=== PATIENT | female | born 1960 | race Hispanic/Latino ===

== ENCOUNTER 2017-01-13 21:21 | Inpatient (IN) | payer MEDICARE, OTHER ==
[2017-01-13] MEDS ORDERED: Morphine 4 mg/ml ISec IVP STA (21:54)
[2017-01-13] MEDS ORDERED: DiphenhydrAMINE 50 mg/ml Inj IVP STA (21:55)
[2017-01-13] MEDS ORDERED: Famotidine 20mg/50ml 20 MG/50 ML BAG IV STA (21:59)
--- NOTE | 2017-01-13 22:25 | ED PDOC ---
Arrival/HPI - General Chief Complaint: ENT Problem Time Seen by Provider: 01/13/17 21:37 Historian: Patient - History of Present Illness Narrative History of Present Illness (Text): 01/13/17 22:10 56-year-old female presents emergency Department with sudden onset of hoarseness of her voice. Turned her head, and felt sudden onset of pain in her neck followed by hoarseness of her voice. Patient states that she has no difficulty swallowing but has some pain in the right side when she swallows. Patient states that she has not had sore throat until the incident, denies any arthralgias or myalgias, denies fevers or chills, denies feeling weak or sick for the incident. Symptom Onset: Sudden Symptom Course: Unchanged Activities at Onset: Rest Context: Home Past Medical History - Provider Review Nursing Documentation Reviewed: Yes - Infectious Disease Hx of Infectious Diseases: None - Tetanus Immunization Tetanus Immunization: Up to Date, Unknown - Cardiac Hx Cardiac Disorders: Yes Hx Hypertension: Yes - Pulmonary Hx Respiratory Disorders: Yes Hx Chronic Obstructive Pulmonary Disease (COPD): Yes Hx Emphysema: Yes - Neurological Hx Neurological Disorder: Yes Hx Migraine: Yes - HEENT Hx HEENT Disorder: No - Renal Hx Renal Disorder: No - Endocrine/Metabolic Hx Endocrine Disorders: No - Hematological/Oncological Hx Blood Disorders: No - Integumentary Hx Dermatological Disorder: No - Musculoskeletal/Rheumatological Hx Arthritis: Yes Hx Rheumatoid Arthritis: Yes Other/Comment: spinedlyosis - Gastrointestinal Hx Gastrointestinal Disorders: No - Genitourinary/Gynecological Hx Genitourinary Disorders: No - Psychiatric Hx Depression: No Hx Emotional Abuse: No Hx Physical Abuse: No Hx Substance Use: No - Surgical History Hx Appendectomy: Yes Hx Cholecystectomy: Yes Hx Tubal Ligation: Yes Other/Comment: Triple fusion on the neck. Jean Carlos elbow surgery. Jean Carlos foot surgery. L shoulder surgery. Hand surgery - Anesthesia Hx Anesthesia: Yes Hx Anesthesia Reactions: No Hx Malignant Hyperthermia: No - Suicidal Assessment Feels Threatened In Home Enviroment: No Family/Social History - Physician Review Nursing Documentation Reviewed: Yes Family/Social History: Unknown Family HX Smoking Status: Current Some Days Smoker Hx Alcohol Use: No Hx Substance Use: No Hx Substance Use Treatment: No Allergies/Home Meds Allergies/Adverse Reactions: Allergies Iodinated Contrast Media - Oral and [Iodinated Contrast Media - IV Dye] Allergy (Verified 06/02/16 09:02) ITCHING CIMZIA Allergy (Intermediate, Uncoded 01/03/15 20:12) SHORTNESS OF BREATH LATEX Allergy (Mild, Uncoded 01/03/15 20:12) RASH cemzia Allergy (Uncoded 01/03/15 20:12) ANGIOEDEMA Home Medications: Home Meds Medication Instructions Recorded Confirmed Acetaminophen/Oxycodone Hydr 1 tab PO Q8H 01/03/15 01/14/17 [Percocet 10/325 mg Tab] Hydrochlorothiazide [Microzide] 12.5 mg PO DAILY 06/02/16 01/14/17 Pantoprazole Sodium [Protonix] 40 mg PO DAILY 06/02/16 01/14/17 Tofacitinib Citrate [Xeljanz] 1 tab PO QOTHERDAY 06/02/16 01/14/17 Oxycodone HCl/Acetaminophen 1 tab PO DAILY 01/14/17 01/14/17 [Percocet 10-325 mg Tablet] Prednisone [Teodora] 1 tab PO PRN PRN 01/14/17 01/14/17 Review of Systems - Physician Review All systems were reviewed & negative as marked: Yes Physical Exam - Physical Exam Narrative Physical Exam (Text): - Review of Systems Constitutional: Normal. absent: Fatigue, Weight Change, Fevers Eyes: Normal ENT: Neck Pain, voice hoarseness, denies tristhmus Respiratory: Normal. absent: SOB, Cough, Sputum Cardiovascular: absent: Chest Pain, Palpitations, Syncope Gastrointestinal: Normal. absent: Abdominal Pain, Diarrhea, Nausea, Vomiting Genitourinary: Normal. absent: Dysuria, Frequency, Hematuria, vaginal bleeding Musculoskeletal: Neck Pain absent: Arthralgias, Back Pain Skin: no rashes, no erythema Neurological: absent: Focal Weakness Endocrine: Normal Hemo/Lymphatic: Normal Psychiatric: No suicidal or homicidal ideations Physical exam Patient appears age appropriate in no distress, speaking full sentences without difficulty, hoarse voice - Systems Exam Head: Present: Atraumatic, Normocephalic Pupils: Present: PERRL Extroacular Muscles: Present: EOMI Conjunctiva: Present: Normal Mouth: Present: Moist Mucous Membranes Neck: Present: Normal Range of Motion. Palpable thyroid. Patient states that she has a history of thyroid nodules. No: MIDLINE TENDERNESS, Paraspinal Tenderness Respiratory/Chest: Present: Clear to Auscultation, Good Air Exchange. No: Respiratory Distress, Accessory Muscle Use, Tachypneic Cardiovascular: Present: Regular Rate and Rhythm, Normal S1, S2, Peripheal Pulses Present. No: Murmurs Abdomen: Present: Normal Bowel Sounds. No: Tenderness, Distention, Peritoneal Signs, Rebound, Guarding Back: Present: Normal Inspection. No: Midline Tenderness, Paraspinal Tenderness Upper Extremity: Present: Normal Inspection. No: Cyanosis, Edema Lower Extremity: Present: Normal Inspection. No: Edema Neurological: Present: GCS=15, Speech Normal but hoarse, cranial nerves II through XII intact with no cerebellar abnormality. No focal neurological deficits except for hoarse voice. Skin: Present: Warm, Dry, Normal Color. No: Rashes Lymphatic: Present: OX3, NI, NC Psychiatric: Present: Alert, Oriented x 3, Normal Insight, Normal Concentration Vital Signs Reviewed: Yes Vital Signs Temp Pulse Resp BP Pulse Ox 01/14/17 03:00 78 13 152/77 H 95 01/14/17 02:58 98.1 F 73 22 152/77 H 01/14/17 02:53 78 16 96 01/14/17 02:22 85 18 192/93 H 96 01/13/17 23:54 94 H 18 181/92 H 96 01/13/17 21:31 98.1 F 95 H 18 178/102 H 96 Temperature: Afebrile Blood Pressure: Normal Pulse: Tachycardic Respiratory Rate: Normal Appearance: Positive for: Well-Appearing Pain Distress: None Mental Status: Positive for: Alert and Oriented X 3 Medical Decision Making ED Course and Treatment: 01/13/17 22:35 56-year-old female with sudden onset of hoarseness of voice after she turned her head and felt pop. Also was complaining of right neck discomfort and pain with swallowing, but without difficulty swallowing. Differential diagnosis includes but not limited to: Vertebral artery dissection versus laryngeal nerve palsy. Patient has no asymmetry or masses in her posterior pharynx, no trismus, no tenderness to palpation of her throat, which makes peritonsillar or retropharyngeal abscess much less likely. Notes and results from previous visits were reviewed. Patient last reported to the emergency department on 06/28/15 for evaluation of headache. Patient reported had "ocular auras" for the past few months, but worsening. Patient was discharged and advised to follow up with PMD. Plan: -- US carotid and vertebral duplex -- labs -- Benadryl, Morphine, Pepcid, Solumedrol, IV fluids patient states she has an allergy to IV contrast and she has itching and difficulty breathing with it solumedrol, benadryl, pepsid ordered as premedication glen Bergman. recommends to order carotid and vertebral dopplers, to admin heparin bolus and drip, and to obtain CTA of arch, cervical vessels and chest tomorrow glen Stiles (pt's ENT physician) states he will send a resident to examine pt tonight if available, or tmr morning pt aware of and agrees with plan US tech called to come in emergently. 01/14/17 00:[address] Meyer. 01/14/17 00:09 glen Bergman, states pt has no evidence of dissection on US, and to cnt with treatment plan pt aware of and agrees with plan 01/14/17 00:13 glen Meyer, asked to admit to the MICU traveling accountant paged 01/14/17 00:20 glne Zelaya in detail, aware of admission to the MICU. asked for dry CT of neck I have discussed the results and plan with the patient, who expresses understanding. Patient given the opportunity to ask question, all questions were answered and there is agreement with the plan to be admitted to the hospital. 01/14/17 00:54 glen Morales from neurosurgery, aware of and agrees with plan CT Head Without Intravenous Contrast FINDINGS: No intracranial hemorrhage. No intracranial edema. No evidence of infarct. There is partial opacification of the ethmoid sinuses, much greater on the left. There is partial opacification of the right maxillary sinus. It could be chronic or alternatively represent acute sinusitis. Clinical correlation is recommended. IMPRESSION: Sinus disease as above. Dictated and Authenticated by: Addie Mcguire MD 01/14/2017 3:45 AM Eastern Time ([place] & [place]) CT Neck Without Intravenous Contrast FINDINGS: Anterior plate and screws C4-C7. There are degenerative changes in the osseous structures with articular facet joint hypertrophy. There is partial opacification of the ethmoid sinuses, much greater on the left. There is partial opacification of the right maxillary sinus. It could be chronic or alternatively represent acute sinusitis. Clinical correlation is recommended. No mass or abscess identified however evaluation is limited without intravenous contrast. Numerous small lymph nodes are present scattered throughout the neck. The airway is patent. A normal epiglottis is identified. IMPRESSION: No acute findings in the neck on noncontrast study. Sinus disease. Dictated and Authenticated by: Addie Mcguire MD 01/14/2017 3:53 AM Eastern Time ([place] & [place]) - Critical Care Critical Care Minutes: 30 minutes - Lab Interpretations Lab Results: 01/13/17 22:34 01/13/17 22:34 Lab Results 01/13/17 23:10: Blood Type Confirm B POSITIVE 01/13/17 22:35: Blood Type B POSITIVE, Antibody Screen Negative, BBK History Checked No verified bt 01/13/17 22:34: Sodium 140, Potassium 4.2, Chloride 105, Carbon Dioxide 26, Anion Gap 13, BUN 15, Creatinine 0.7, Est GFR ( Amer) > 60, Est GFR (Non- Af Amer) > 60, Random Glucose 102, Calcium 9.8, Total Bilirubin 0.7, AST 31, ALT 39, Alkaline Phosphatase 64, Total Protein 7.5, Albumin 4.7, Globulin 2.7, Albumin/Globulin Ratio 1.7 01/13/17 22:34: PT 11.1, INR 1.03, APTT 27.1 01/13/17 22:34: WBC 5.9, RBC 5.04, Hgb 15.5, Hct 44.2, MCV 87.7, MCH 30.8, MCHC 35.1, RDW 13.1, Plt Count 199, MPV 10.6, Gran % 40.3 L, Lymph % (Auto) 46.0 H, [place] % (Auto) 10.5 H, Eos % (Auto) 2.4, Baso % (Auto) 0.8, Gran # 2.39, Lymph # 2.7, [place] # 0.6, Eos # 0.1, Baso # 0.05 I have reviewed the lab results: Yes - RAD Interpretation Radiology Orders: 01/13/17 22:08 CAROTID & VERTEBRAL DUPLEX [US] Stat 01/14/17 00:18 NECK SOFT TISSUE W/O CONTRAST [CT] Stat - Medication Orders Current Medication Orders: Aspirin (Ecotrin) 81 mg PO DAILY ROM Hydrochlorothiazide (Microzide) 12.5 mg PO DAILY [facility] Sodium Chloride (Sodium Chloride 0.9%) 1,000 mls @ 100 mls/hr IV .Q10H ROM Last Admin: 01/13/17 22:49 Dose: 100 mls/hr Heparin Sodium/Sodium Chloride (Heparin 56458 Units/250ml 1/2 Normal Saline) 25 ,000 units in 250 mls @ 11.969 mls/hr IV .[id number] PRN; Protocol; 18 UNITS/KG/HR PRN Reason: ADJUST RATE PER PROTOCOL Last Admin: 01/14/17 00:44 Dose: 18 units/kg/hr, 11.969 mls/hr Oxycodone/Acetaminophen (Percocet 10/325 Mg Tab) 1 tab PO Q8H ROM Pantoprazole Sodium (Protonix Ec Tab) 40 mg PO DAILY ROM Discontinued Medications Diphenhydramine HCl (Benadryl) 50 mg IVP STAT STA Stop: 01/13/17 21:56 Last Admin: 01/13/17 22:49 Dose: 50 mg Heparin Sodium (Porcine) (Heparin) 5,300 units 80 units/kg (5300 units) IV ONCE ONE PRN Reason: Protocol Stop: 01/13/17 23:37 Last Admin: 01/14/17 00:38 Dose: 5,300 units Hydrochlorothiazide (Hydrodiuril) 25 mg PO STAT STA Stop: 01/14/17 00:10 Last Admin: 01/14/17 00:20 Dose: Not Given Non-Admin Reason: Patient Refused Famotidine (Pepcid 20mg/50ml Premix) 20 mg in 50 mls @ 100 mls/hr IV STAT STA Stop: 01/13/17 22:28 Last Admin: 01/13/17 22:49 Dose: 100 mls/hr Heparin Sodium/Sodium Chloride (Heparin 39819 Units/250ml 1/2 Normal Saline) 25 ,000 units in 250 mls @ 11.92 mls/hr IV .[id number] PRN; Protocol; 18 UNITS/KG/HR PRN Reason: ADJUST RATE PER PROTOCOL Methylprednisolone (Solu-Medrol) 125 mg IVP STAT STA Stop: 01/13/17 21:56 Last Admin: 01/13/17 22:49 Dose: 125 mg Morphine Sulfate (Morphine) 4 mg IVP STAT STA Stop: 01/13/17 21:55 Last Admin: 01/13/17 22:48 Dose: 4 mg Morphine Sulfate (Morphine) 6 mg IVP STAT STA Stop: 01/14/17 00:45 Last Admin: 01/14/17 01:26 Dose: 6 mg - [facility] Statement The provider has reviewed the documentation as recorded by the Yanetibsinai Gramajo All medical record entries made by the Yanetibsinai were at my direction and personally dictated by me. I have reviewed the chart and agree that the record accurately reflects my personal performance of the history, physical exam, medical decision making, and the department course for this patient. I have also personally directed, reviewed, and agree with the discharge instructions and disposition. Disposition/Present on Arrival - Present on Arrival Any Indicators Present on Arrival: No History of DVT/PE: No History of Uncontrolled Diabetes: No Urinary Catheter: No History of Decub. Ulcer: No History Surgical Site Infection Following: None - Disposition Have Diagnosis and Disposition been Completed?: Yes Diagnosis: Hoarseness of voice Disposition: HOSPITALIZED Disposition Time: 00:21 Patient Plan: Admission Patient Problems: Current Active Problems Problem Status Onset Hoarseness of voice Acute Condition: FAIR
[2017-01-13 22:45] LABS: ADD MANUAL DIFF? NO
[2017-01-13] MEDS: Sodium Chloride 0.9% 1,000 ML IV SCH (22:49)
[2017-01-13 22:58] LABS: ALB/GLOB RATIO 1.7 (1.1-1.8); ALKALINE PHOSPHATASE 64 U/L (38-133); ALT/SGPT 39 U/L (7-56); AST/SGOT 31 U/L (15-39); BILIRUBIN,TOTAL 0.7 mg/dL (0.2-1.3); BLOOD UREA NITROGEN 15 mg/dL (7-21); CALCIUM 9.8 mg/dL (8.4-10.5); CARBON DIOXIDE 26 mmol/L (21-33); CHLORIDE 105 mmol/L (98-107); GFR AFRICAN-AMERICAN > 60; GLUCOSE,RANDOM 102 mg/dL (70-110); POTASSIUM 4.2 mmol/L (3.6-5.0); SODIUM 140 mmol/L (132-148); TOTAL PROTEIN 7.5 g/dL (5.8-8.3)
[2017-01-13 23:02] LABS: BASO # 0.05 K/mm3 (0.0-2.0); BASO % 0.8 % (0.0-3.0); EOS # 0.1 (0.0-0.7); EOS % 2.4 % (1.5-5.0); GRAN # 2.39 (1.4-6.5); GRAN % 40.3 % (50.0-68.0); HEMATOCRIT 44.2 % (36.0-48.0); LYMPH # 2.7 (1.2-3.4); MEAN CELL VOLUME 87.7 fL (80.0-105.0); MEAN CORPUSCULAR HEMOGLOBIN 30.8 pg (25.0-35.0); MEAN CORPUSCULAR HGB CONC 35.1 g/dl (31.0-37.0); MEAN PLATELET VOLUME 10.6 fl (7.0-11.0); MONO # 0.6 (0.1-0.6); MONO % 10.5 % (1.0-6.0); PLATELET COUNT 199 10^3/uL (120.0-450.0); RED CELL DISTRIBUTION WIDTH 13.1 % (11.5-14.5); WHITE BLOOD COUNT 5.9 10^3/ul (4.5-11.0)
[2017-01-13 23:08] LABS: INR 1.03 (0.93-1.08); PARTIAL THROMBOPLASTIN TIME 27.1 Seconds (23.7-30.8)
[2017-01-13] MEDS ORDERED: Heparin25000 units/250ml 1/2NS 25,000 UNITS/250 ML BAG IV PRN (23:36)
[2017-01-14] MEDS ORDERED: Heparin25000 units/250ml 1/2NS 25,000 UNITS/250 ML BAG IV PRN (00:33)
[2017-01-14] MEDS ORDERED: Oxycodone/Acetaminophen 10/325 mg Tab PO SCH ×2 (01:30→10:00)
--- NOTE | 2017-01-14 01:57 | CP.PCM.CON ---
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 This resulted in pain in the right side of the neck radiating to the base of the skull, occiput, she also started to have hoarseness of the voice, and pain on swallowing, felt light headed also. Came to the hospital wth above symptoms. She denied any loss of sensation, weakness in arms or legs, dysarthria, breathing difficulty, diplopia. In ER patient had doppler of the carotid done with was unremarkable. DD of vertebrobasillar dissection, recurrent laryngeal nerve was thought. PMH as above, prior h/o hoarseness with laryngeal polyps, appencectomy, cholecystecomy, tl and spine surgeries Allergies Iodine contrast getts itchy and breathing difficulties, codine causing rash, itching, latex Family history not contributory Social lives with family, disability form RA, smokes 1PPD, denies alcohol, illicit durgs, patient is retiered ER physician. Meds reviewed In ER patient was started on heparin drip, case was d/w Dr Héctor Bergman who recommended CTA for head and neck, aslo discussed with ENT. Review of Systems - Review of Systems All systems: reviewed and no additional remarkable complaints except (hpi) Past Patient History - Infectious Disease Hx of Infectious Diseases: None - Tetanus Immunizations Tetanus Immunization: Up to Date, Unknown - Past Social History Smoking Status: Heavy Smoker > 10 Cigarettes Daily Alcohol: None Drugs: Denies Home Situation {Lives}: With Family - CARDIAC Hx Cardiac Disorders: Yes Hx Hypertension: Yes - PULMONARY Hx Respiratory Disorders: Yes Hx Chronic Obstructive Pulmonary Disease (COPD): Yes Hx Emphysema: Yes - NEUROLOGICAL Hx Neurological Disorder: Yes Hx Migraine: Yes - HEENT Hx HEENT Problems: No - RENAL Hx Chronic Kidney Disease: No - ENDOCRINE/METABOLIC Hx Endocrine Disorders: No - HEMATOLOGICAL/ONCOLOGICAL Hx Blood Disorders: No - INTEGUMENTARY Hx Dermatological Problems: No - MUSCULOSKELETAL/RHEUMATOLOGICAL Hx Arthritis: Yes Hx Rheumatoid Arthritis: Yes Other/Comment: spinedlyosis - GASTROINTESTINAL Hx Gastrointestinal Disorders: No - GENITOURINARY/GYNECOLOGICAL Hx Genitourinary Disorders: No - PSYCHIATRIC Hx Depression: No Hx Emotional Abuse: No Hx Physical Abuse: No Hx Substance Use: No - SURGICAL HISTORY Hx Appendectomy: Yes Hx Cholecystectomy: Yes Hx Tubal Ligation: Yes Other/Comment: Triple fusion on the neck. Jean Carlos elbow surgery. Jean Carlos foot surgery. L shoulder surgery. Hand surgery - ANESTHESIA Hx Anesthesia: Yes Hx Anesthesia Reactions: No Hx Malignant Hyperthermia: No Meds Allergies/Adverse Reactions: Allergies Allergy/AdvReac Type Severity Reaction Status Date / Time Iodinated Contrast Media - Allergy ITCHING Verified 06/02/16 09:02 Oral and [Iodinated Contrast Media - IV Dye] CIMZIA Allergy Intermediate SHORTNESS Uncoded 01/03/15 20:12 OF BREATH LATEX Allergy Mild RASH Uncoded 01/03/15 20:12 cemzia Allergy ANGIOEDEMA Uncoded 01/03/15 20:12 - Medications Medications: Current Medications Aspirin (Ecotrin) 81 mg PO DAILY [facility] Hydrochlorothiazide (Microzide) 12.5 mg PO DAILY [facility] Sodium Chloride (Sodium Chloride 0.9%) 1,000 mls @ 100 mls/hr IV .Q10H [facility] Last Admin: 01/13/17 22:49 Dose: 100 mls/hr Heparin Sodium/Sodium Chloride (Heparin 75250 Units/250ml 1/2 Normal Saline) 25 ,000 units in 250 mls @ 11.969 mls/hr IV .[id number] PRN; Protocol; 18 UNITS/KG/HR PRN Reason: ADJUST RATE PER PROTOCOL Last Admin: 01/14/17 00:44 Dose: 18 units/kg/hr, 11.969 mls/hr Oxycodone/Acetaminophen (Percocet 10/325 Mg Tab) 1 tab PO Q8H [facility] Pantoprazole Sodium (Protonix Ec Tab) 40 mg PO DAILY [facility] Physical Exam - Additional Findings Additional findings: * HEENT KASEY, hoarse voice, whispering * Neck no swelling mild tenderness in the occipital area, can not touch chin with chest due to prior spine surg * Chest Clear * CVS Regular, no gallop or rub * PA soft, nt, bs present * Ext no edema * WASTE RECYCLER no cranial nerve deficit, no dysarthria, no sensory, motor deficit, heal toe, no coordination difficulties, plantars down going * Skin normal turgor. Results - Vital Signs Recent Vital Signs: Last Vital Signs Temp 98.1 F 01/13/17 21:31 Pulse 94 H 01/13/17 23:54 Resp 18 01/13/17 23:54 BP 181/92 H 01/13/17 23:54 Pulse Ox 96 01/13/17 23:54 - Labs Result Diagrams: 01/13/17 22:34 01/13/17 22:34 Assessment & Plan - Assessment and Plan (Free Text) Assessment: * Sudden right neck pain with difficulty in swallowing, hoarse voice DD of laryngeal polyps, recurrent laryngeal nerve palsy, swelling around the area, pending CTA, patient being prepared with due to contrast allergies. * H/o RA on treatment, ER physician on disability Plan: * Plain CT of head/neck * CTA * Pain control * ENT consult * Observe in icu.
[2017-01-14 03:30] VITALS: BMI 27.1
--- NOTE | 2017-01-14 03:45 | CT ---
EXAM: CT Head Without Intravenous Contrast CLINICAL HISTORY: 56 years old, female; Pain; Headache; Additional info: Hoarse voice TECHNIQUE: Axial computed tomography images of the head/brain without intravenous contrast. This CT exam was performed using one or more of the following dose reduction techniques: automated exposure control, adjustment of the mA and/or kV according to patient size, and/or use of iterative reconstruction technique. EXAM DATE/TIME: 01/14/2017 1:46 AM COMPARISON: US - CAROTID VERTEBRAL DUPLEX 01/13/2017 11:26:05 PM FINDINGS: No intracranial hemorrhage. No intracranial edema. No evidence of infarct. There is partial opacification of the ethmoid sinuses, much greater on the left. There is partial opacification of the right maxillary sinus. It could be chronic or alternatively represent acute sinusitis. Clinical correlation is recommended. IMPRESSION: Sinus disease as above.
--- NOTE | 2017-01-14 03:53 | CT ---
EXAM: CT Neck Without Intravenous Contrast CLINICAL HISTORY: 56 years old, female; Pain; Other: Headache; Additional info: Hoarse voice TECHNIQUE: Axial computed tomography images of the neck without intravenous contrast. This CT exam was performed using one or more of the following dose reduction techniques: automated exposure control, adjustment of the mA and/or kV according to patient size, and/or use of iterative reconstruction technique. EXAM DATE/TIME: 01/14/2017 12:18 AM COMPARISON: US - CAROTID VERTEBRAL DUPLEX 01/13/2017 11:26:05 PM FINDINGS: Anterior plate and screws C4-C7. There are degenerative changes in the osseous structures with articular facet joint hypertrophy. There is partial opacification of the ethmoid sinuses, much greater on the left. There is partial opacification of the right maxillary sinus. It could be chronic or alternatively represent acute sinusitis. Clinical correlation is recommended. No mass or abscess identified however evaluation is limited without intravenous contrast. Numerous small lymph nodes are present scattered throughout the neck. The airway is patent. A normal epiglottis is identified. IMPRESSION: No acute findings in the neck on noncontrast study. Sinus disease.
[2017-01-14] MEDS: Pantoprazole 40 mg EC Tab PO SCH (09:32)
[2017-01-14] MEDS: Sodium Chloride 0.9% 1,000 ML IV SCH (11:38)
--- NOTE | 2017-01-14 13:20 | US ---
HISTORY: neck pain TECHNIQUE: Sonographic evaluation of the thyroid gland. COMPARISON: FINDINGS: RIGHT LOBE: Measures 2 x 1.2 x 3.7 cm. Heterogenous echotexture, normal vascularity Nodules: 1. Cystic nodule upper pole 3 mm. 2. Complex primarily solid nodule mid pole region 7 x 8 mm. 3. Solid hypoechoic nodule lower pole 1 x 1.4 cm. 4. Cystic nodule lower pole 3 x 2 mm. LEFT LOBE: Measures 1 x 2.5 x 3.6 cm. Heterogenous echotexture, normal vascularity Nodules: 1. Solid nodule lower pole 4 x 5 mm. 2. Solid nodule midpole region 2 x 6 mm. ISTHMUS: Measures 0.21 cm. Nodules: None OTHER FINDINGS: None . IMPRESSION: Multiple bilateral thyroid nodules the largest in the right lobe measures 1 x 1.4 cm. Recommendations for follow-up: 1. Radionuclide Scan to assess Thyroid function and to evaluate the thyroid for the presence of hot or cold nodules. 2. Fine needle aspiration (FNA) should also be considered as an invasive diagnostic tool in the assessment of findings described above.
--- NOTE | 2017-01-14 14:05 | CARD ---
APPROVED REPORT EKG Measurement Heart [id number] <Conclusion> Normal sinus rhythm Nonspecific ST and T wave abnormality Abnormal ECG
[2017-01-14] MEDS: Oxycodone/Acetaminophen 10/325 mg Tab PO PRN (14:21)
--- NOTE | 2017-01-14 14:26 | CON ---
DATE: 01/14/2017 CHIEF COMPLAINT: Neck pain. 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 Apparently she was preparing dinner in the kitchen when she turned her neck and heard a snap around 8 p.m., had right-sided neck pain radiating down the base of the skull and also has had some worsening hoarseness of voice with some lightheadedness. She cam e to the ER to evaluate for vertebrobasilar dissection. CT head showed no acute intracranial abnorma lities as well as CTA neck showed no acute abnormalities either. Currently, she is moving all extrem ities. Her blood pressures are stable, she also has some mild ____ pain, but moving all extremities without any difficulty. She has baseline hoarseness, but no aphasia. 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 No acute events overnight. PAST MEDICAL HISTORY: History of hoarseness from laryngeal polyps, appendectomy, cholecystectomy, hi story of cervical and lumbar spine fusion, history of lumbar vertebral rupture at L1-L2 and history o f rheumatoid arthritis and hypertension. REVIEW OF SYSTEMS: 14 point review of systems as per the HPI. FAMILY HISTORY: Noncontributory. SOCIAL HISTORY: No illicit drug use, smoking or ETOH abuse. Is disabled from rheumatoid arthritis. REVIEW OF SYSTEMS: A 14-point review of systems is negative except for the HPI. ALLERGIES: IODINE, CONTRAST MEDIA. PHYSICAL EXAMINATION: VITAL SIGNS: Temperature 98.1, pulse rate 85, blood pressure 191/94, respiratory rate of 18, oxygen 95% on room air. GENERAL: The patient is sitting up in bed in no acute distress. HEENT: Atraumatic, normocephalic. PERRLA. Extraocular muscles intact. NECK: Supple, no JVD, no adenopathy noted. LUNGS: Clear to auscultation. No adventitious sounds. HEART: S1, S2, normal rate and rhythm. No murmurs, rubs, or gallops. ABDOMEN: Soft, nontender, nondistended. Bowel sounds present. EXTREMITIES: No clubbing, no cyanosis. Peripheral pulses 2+ felt bilaterally. NEUROLOGIC: The patient is alert, oriented to person, place, month and year. Speech is fluent, with out any errors. Cranial nerves II through XII are intact. MOTOR EXAM: Moves all extremities equally. No pronator drift seen. SENSORY: Decreased light touch to pinprick of calves bilaterally, decreased vibration of the toes. DTRs are 2+ throughout and 1 at the ankles and knees. COORDINATION: [id number] intact. GAIT: Deferred for now. MUSCULOSKELETAL: She has upper cervical tightness and a spasm. She has evidence of rheumatological features in her hands and joints. LABORATORIES: Sodium is 140, potassium 4.2, chloride 105, carbon dioxide 26, BUN of 15, creatinine 0 .7. Random glucose 102. ASSESSMENT AND PLAN: This is a 56-year-old woman with history of status post cervical and lumbar spi ne fusion with history of lumbar vertebral rupture at L1-L2, history of L4-L5 severe spinal stenosis, history of hypertension, rheumatoid arthritis, laryngeal polyps, status post removal, status post ho arseness, had a sudden onset of neck pain on the right side radiating up to the occiput after turning her neck suddenly. Had transient worsening of hoarseness, but no focal weakness in the extremities, was being evaluated for possible vertebral artery dissection. CT angio was not done, but CT head sh owed no acute intracranial abnormalities. CT of the soft tissue of the neck showed no acute abnormal ities either. Currently, neurologically, she is doing well. There are no blood pressure fluctuation s. She just has hypertension from neck pain. AT THIS TIME, RECOMMEND: 1. Cyclobenzaprine 10 mg p.o. t.i.d. 2. Possibly could try Neurontin 600 mg p.o. at bedtime for neuropathic pain. 3. Continue aspirin 81 mg for stroke prevention. 4. Keep the blood pressure between 120-130 mmHg. She is currently hypertensive. Continue with current present medical management. She is neurologically stable from my standpoint. Thank you for this consult. Cain Ortiz MD cc: [id number] TT: 01/14/2017 14:25:31 Confirmation # [id number] Dictation # [id number]
--- NOTE | 2017-01-14 14:27 | US ---
PROCEDURE: Bilateral carotid artery duplex ultrasound HISTORY: Possible vertebral dissection. PHYSICIAN(S): Héctor Bergman MD. TECHNIQUE: Duplex sonography and color-flow Doppler were used to evaluate the carotid bifurcations and limited segments of the vertebral arteries bilaterally. FINDINGS: There is mild smooth hypoechoic plaque noted at the carotid bifurcations bilaterally. The peak systolic velocity in the proximal right internal carotid artery is 100 cm/sec. This corresponds to a 20 to 39% proximal right ICA stenosis. Normal systolic velocities are noted in the proximal right external carotid artery. There is antegrade flow in the right vertebral artery. The peak systolic velocity in the proximal left internal carotid artery is 97 cm/sec. This corresponds to a 20 to 39% proximal left ICA stenosis. Normal systolic velocities are noted in the proximal left external carotid artery. There is antegrade flow in the left vertebral artery. IMPRESSION: 1. Bilateral 20-39% proximal ICA stenoses. 2. Limited images of the vertebral arteries bilaterally are normal. The vertebral arteries are normal in size with normal low resistance waveforms. No obvious dissection is appreciated.
--- NOTE | 2017-01-14 15:39 | CP.CCUPN ---
<Eli Bush - Last Filed: 01/14/17 15:43> CCU Subjective - Physician Review Events Since Last Encounter (Free Text): 01/14/17 15:38 stable overnight Subjective (Free Text): 01/14/17 15:38 Critical care progress note for Dr. Donta Bush, PGY-1 Pt S & E at bedside this AM. Pt reports continued but improving hoarseness, minimal R neck pain at distal aspect. Some odynophagia. Chronic LBP/stiffness. Denies N/V/F/C, SOB, CP, abdominal pain. CCU Objective - Vital Signs / Intake & Output Vital Signs (Last 4 hours): Vital Signs Temp Pulse Resp BP Pulse Ox 01/14/17 14:00 89 45 H 153/76 H 92 L 01/14/17 13:50 88 93 H 95 01/14/17 13:40 90 21 96 01/14/17 13:30 76 16 93 L 01/14/17 13:20 80 17 96 01/14/17 13:10 79 18 96 01/14/17 13:01 82 25 H 163/101 H 96 01/14/17 13:00 84 38 H 94 L 01/14/17 12:50 81 22 93 L 01/14/17 12:40 78 15 94 L 01/14/17 12:30 90 46 H 97 01/14/17 12:20 92 H 65 H 97 01/14/17 12:16 85 191/94 H 01/14/17 12:10 88 95 H 96 01/14/17 12:06 86 191/94 H 98 01/14/17 12:00 93 H 67 H 94 L 01/14/17 11:50 91 H 14 97 01/14/17 11:44 98.6 F 91 H 18 180/90 H 95 01/14/17 11:40 85 96 Intake and Output (Last 8hrs): Intake & Output 01/14/17 01/14/17 01/14/17 06:59 14:59 22:59 Intake Total 130 Balance 130 Weight 65.272 kg Intake: IV 130 Other: Voiding Method Bedside Commode Bedside Commode # Voids Urine, Voided 1 - Physical Exam Head: Positive for: Atraumatic, Normocephalic Pupils: Positive for: PERRL Extroacular Muscles: Positive for: EOMI Conjunctiva: Positive for: Normal Ears: Positive for: Normal Mouth: Positive for: Moist Mucous Membranes, Normal Lips, Normal Tounge Nose (External): Positive for: Atraumatic Neck: Positive for: Other (pain at anterior aspect of distal neck upon palpation ). Negative for: Normal Range of Motion (hx fusion), Paraspinal Tenderness Respiratory/Chest: Positive for: Clear to Auscultation, Good Air Exchange. Negative for: Respiratory Distress, Accessory Muscle Use Cardiovascular: Positive for: Regular Rate and Rhythm, Normal S1, S2 Abdomen: Positive for: Normal Bowel Sounds. Negative for: Tenderness, Distention, Peritoneal Signs Upper Extremity: Positive for: Normal Inspection, Neurovascularly Intact. Negative for: Cyanosis, Edema Lower Extremity: Positive for: Normal Inspection, Neurovascularly Intact. Negative for: Edema Neurological: Positive for: GCS=15, CN II-XII Intact, Speech Normal Skin: Positive for: Warm, Dry, Normal Color. Negative for: Rashes Psychiatric: Positive for: Alert, Oriented x 3, Normal Insight, Normal Concentration - Medications Active Medications: Active Medications Generic Name Dose Route Start Last Admin Trade Name Freq PRN Reason Stop Dose Admin Amlodipine Besylate 5 mg 01/14/17 12:15 01/14/17 12:16 Norvasc PO 5 mg DAILY ROM Administration Aspirin 81 mg 01/14/17 10:00 01/14/17 09:32 Ecotrin PO 81 mg DAILY ROM Administration Cyclobenzaprine HCl 5 mg 01/14/17 10:00 01/14/17 14:22 Flexeril PO Not Given TID ROM Hydrochlorothiazide 12.5 mg 01/14/17 10:00 01/14/17 09:32 Microzide PO 12.5 mg DAILY ROM Administration Nicotine 1 patch 01/14/17 11:45 01/14/17 12:15 Nicoderm Cq TD 1 patch DAILY ROM Administration Oxycodone/Acetaminophen 1 tab 01/14/17 10:00 01/14/17 10:29 Percocet 10/325 Mg Tab PO Not Given DAILY ROM Oxycodone/Acetaminophen 1 tab 01/14/17 11:53 01/14/17 14:21 Percocet 10/325 Mg Tab PO 1 tab Q4H PRN Administration Pain, moderate (4-7) Pantoprazole Sodium 40 mg 01/14/17 10:00 01/14/17 09:32 Protonix Ec Tab PO 40 mg DAILY ROM Administration - Patient Studies Lab Studies: Lab Studies 01/14/17 01/14/17 Range/Units 13:00 10:57 APTT 122.4 H* (23.7-30.8) Seconds Troponin I < 0.01 ng/mL Laboratory Results - last 24 hr 01/14/17 01/14/17 10:57 13:00 APTT 122.4 H* Troponin I < 0.01 EKG/Cardiology Studies: Cardiology / EKG Studies 01/14/17 12:11 ELECTROCARDIOGRAM Stat Comment: Reason For Exam: chest discomfort Review of Systems - Review of Systems All systems: reviewed and no additional remarkable complaints except - Constitutional Constitutional: absent: Fever, Chills - EENT Eyes: UNREMARKABLE. absent: Change in Vision Ears: Ear Pain (at time of incident) Nose/Mouth/Throat: Odynophagia, Neck Pain - Cardiovascular Cardiovascular: UNREMARKABLE. absent: Chest Pain, Leg Edema, Lightheadedness - Respiratory Respiratory: UNREMARKABLE. absent: Cough - Gastrointestinal Gastrointestinal: UNREMARKABLE. absent: Abdominal Pain, Nausea, Vomiting - Genitourinary Genitourinary: UNREMARKABLE. absent: Change in Urinary Stream - Musculoskeletal Musculoskeletal: Back Pain (chronic), Stiffness (hx RA) - Integumentary Integumentary: UNREMARKABLE - Neurological Neurological: absent: Confusion, Dizziness, Numbness, Focal Weakness, Headaches , Lack of Coordination, Loss of Vision, Memory Loss, Paresthesias, Sensory Deficit, Syncope - Endocrine Endocrine: UNREMARKABLE. absent: Palpitations Critical Care Progress Note - Ventilator Checklist PUD Prophalyxis: Yes DVT Prophylaxis: Yes - Extremities/Vascular Does the Patient have a Central Venous Catheter?: No Does the Patient need a Central Venous Catheter?: No Does the Patient have a Jeff Catheter?: No Does the Patient need a Jeff Catheter?: No - Prophylaxis GI Prophylaxis GI: PPI - Prophylaxis DVT Prophylaxis DVT: Heparin SQ - Nutrition Nutrition: Nutrition Category Date Time Status Heart Healthy Diet [DIET] Diets 01/14/17 Dinner Ordered Liquid Diet [DIET] Diets 01/14/17 Breakfast Ordered Assessment/Plan - Assessment and Plan (Free Text) Assessment: 75F w/PMH sig for hx RA, s/p cervical and lumbar spine fusion, hx vertebral rupture at L1/L2, hx HTN, Foot sx 2/2 RA, hx laryngeal polyps admitted to ICU for neurological monitoring 2/2 suspected potential vertebral artery dissection. Pt stable overnight, pain improved. Will continue to monitor Plan: Neuro Hx spinal fusion Re-started home med: percocet 1 tab PO Q4H PRN Pain (verified with [facility]), 1 tab PO QD Currently on heparin drip- will d/c Neuro consulted- cont med mgmt, neurologically stable, signed off ENT consulted [facility] Hx HTN- on HCTZ at home BP 191/94 Started Norvasc 5mg PO QD Trop neg x 1 Cont home med: HCTZ, ASA Monitor VS Pulm Sat 97% on RA Target SaO2 >94% Monitor GI Currently on CLD Will advance to mechanically soft/fine chopped diet Nursing swallow screen done Monitor Nephro Electrolytes WNL Monitor Able to urinate on own Monitor Endo BS 102 FU Free T4 FU Free T3 FU T4 FU TSH Target euglycemia as per NICE sugar trial ID Afebrile No Leukocytosis Heme Currently on Heparin drip- will d/c PTT 122.4 Hgb 15.5 Hct 44.2 Plts 199 Monitor MSK Hx RA w/muscle stiffness Started on Flexeril 5mg PO TID Continued home pain regimen Monitor Psych Tobacco abuse Nicotine patch QD GI/DVT ppx On heparin drip- will d/c and do SC ppx Protonix SCDs Dispo Stablized overnight Awaiting consult recs Cont to monitor in ICU DW attending - Date & Time Date: 01/14/17 Time: 08:15 <Diogenes DASILVA,Zhang H - Last Filed: 01/14/17 15:56> CCU Objective - Vital Signs / Intake & Output Vital Signs (Last 4 hours): Vital Signs Pulse Resp BP Pulse Ox 01/14/17 14:00 89 45 H 153/76 H 92 L 01/14/17 13:50 88 93 H 95 01/14/17 13:40 90 21 96 01/14/17 13:30 76 16 93 L 01/14/17 13:20 80 17 96 01/14/17 13:10 79 18 96 01/14/17 13:01 82 25 H 163/101 H 96 01/14/17 13:00 84 38 H 94 L 01/14/17 12:50 81 22 93 L 01/14/17 12:40 78 15 94 L 01/14/17 12:30 90 46 H 97 01/14/17 12:20 92 H 65 H 97 01/14/17 12:16 85 191/94 H 01/14/17 12:10 88 95 H 96 01/14/17 12:06 86 191/94 H 98 01/14/17 12:00 93 H 67 H 94 L Intake and Output (Last 8hrs): Intake & Output 01/14/17 01/14/17 01/14/17 06:59 14:59 22:59 Intake Total 130 Balance 130 Weight 143 lb 14.4 oz Intake: IV 130 Other: Voiding Method Bedside Commode Bedside Commode # Voids Urine, Voided 1 - Medications Active Medications: Active Medications Generic Name Dose Route Start Last Admin Trade Name Freq PRN Reason Stop Dose Admin Amlodipine Besylate 5 mg 01/14/17 12:15 01/14/17 12:16 Norvasc PO 5 mg DAILY ROM Administration Aspirin 81 mg 01/14/17 10:00 01/14/17 09:32 Ecotrin PO 81 mg DAILY ROM Administration Cyclobenzaprine HCl 5 mg 01/14/17 10:00 01/14/17 14:22 Flexeril PO Not Given TID ROM Heparin Sodium (Porcine) 5,000 units 01/14/17 22:00 Heparin SC Q8 [facility] Protocol Hydrochlorothiazide 12.5 mg 01/14/17 10:00 01/14/17 09:32 Microzide PO 12.5 mg DAILY ROM Administration Nicotine 1 patch 01/14/17 11:45 01/14/17 12:15 Nicoderm Cq TD 1 patch DAILY ROM Administration Oxycodone/Acetaminophen 1 tab 01/14/17 10:00 01/14/17 10:29 Percocet 10/325 Mg Tab PO Not Given DAILY ROM Oxycodone/Acetaminophen 1 tab 01/14/17 11:53 01/14/17 14:21 Percocet 10/325 Mg Tab PO 1 tab Q4H PRN Administration Pain, moderate (4-7) Pantoprazole Sodium 40 mg 01/14/17 10:00 01/14/17 09:32 Protonix Ec Tab PO 40 mg DAILY ROM Administration - Patient Studies Lab Studies: Lab Studies 01/14/17 01/14/17 Range/Units 13:00 10:57 APTT 122.4 H* (23.7-30.8) Seconds Troponin I < 0.01 ng/mL Laboratory Results - last 24 hr 01/14/17 01/14/17 10:57 13:00 APTT 122.4 H* Troponin I < 0.01 EKG/Cardiology Studies: Cardiology / EKG Studies 01/14/17 12:11 ELECTROCARDIOGRAM Stat Comment: Reason For Exam: chest discomfort Critical Care Progress Note - Nutrition Nutrition: Nutrition Category Date Time Status Heart Healthy Diet [DIET] Diets 01/14/17 Dinner Ordered Liquid Diet [DIET] Diets 01/14/17 Breakfast Ordered Attending/Attestation - Attestation I have personally seen and examined this patient.: Yes I have fully participated in the care of the patient.: Yes I have reviewed all pertinent clinical information: Yes Notes (Text): 01/14/17 15:50 56 y/o F who came in to the ICU for worry for possible neurological sequlae from a possible mechanical injury Upon examining the patient and monitoring her symptoms, its highly unlikely that she had any neurological insult that warrants a MRI or MRA emergently. Neurology was consulted as well to offer some input on management. Would continue w/ pain management and muscle relaxers. Hoarse voice noted to be worsening in the past 3 weeks, RLN and/or vocal cord polyps maybe contributing . ENT consulted as well. Thyroid US done to r/o any new cysts etc. TSH t4 t3 pending. dvt p heparin sq. D/C heparin drip at this point. If any new symptoms reccur , would then upgrade to imaging. cc time 65 min
[2017-01-14 16:06] VITALS: TEMP 97.8
[2017-01-14 18:14] VITALS: BP 177/81; PULSE 88; RESP 42; O2SAT 96
[2017-01-14 20:40] LABS: FREE T4 0.8 ng/dL (0.78-2.19); T4 7.4 ug/dL (5.5-11.0)
[2017-01-14 20:53] LABS: THYROID STIMULATING HORMONE 0.19 mIU/mL (0.46-4.68)
--- NOTE | 2017-01-14 21:38 | CON ---
DATE: 01/14/2017 REASON FOR CONSULTATION: Hoarseness. HISTORY OF PRESENT ILLNESS: The patient is a 56-year-old female with past medical history of rheumat oid arthritis, status post cervical and lumbar spinal fusion, history of a lumbar vertebral rupture a t L1-L2 and history of severe L4-L5 lumbar stenosis and spondylolisthesis, hypertension, foot surgeri es, nerve decompressions in the past and laryngeal polyps. The patient states she was preparing dinn er in the kitchen when she turned her head she heard a loud snap around 8 p.m. and had right-sided ne ck pain radiating down the base of her skull and worsening hoarseness with some lightheadedness. The patient was evaluated in the ED for vertebrobasilar dissection. CT showed no acute intracranial abn ormalities. As well, CTA of the neck showed no acute abnormalities either. The patient is moving al l extremities. She was sent to the ICU and remained there before ENT consult was complete. The andie ent was also seen by neurology. Note from Dr. Cain Ortiz stating the patient had worsening hoarse ness, but no focal weakness of the extremities and to evaluate for possible vertebral artery dissecti on. A CT angio was not done but CT showed no acute abnormalities. Soft tissue neck shows no abnorma lities currently. Neurologically she is doing well with no blood pressure fluctuations. The patient was seen and examined. The patient now states her hoarseness has resolved, just has neck pain on th e right neck. I believe this was a severe muscle pull. The patient denies any chest pain, shortness of breath, nausea, vomiting, diarrhea, fevers, night sweats, loss of consciousness, falls, new neck trauma, inability to swallow, dysphagia, odynophagia, otorrhea, otalgia or drainage from her nose. FAMILY HISTORY: Noncontributory. SOCIAL HISTORY: No drug use. No alcohol use. Is disabled from rheumatoid arthritis. ALLERGIES: IODINE, CONTRAST MEDIA. PHYSICAL EXAMINATION: VITAL SIGNS: Elevated blood pressure today. Temperature 98.1, pulse 85, blood pressure is 190/94, r espiratory rate of 18, oxygen was % on room air. GENERAL: Alert and oriented x 3, in no acute distress. EYES: EOMI. PERRLA. MOUTH: Moist mucous membranes. Poor dentition. Symmetric palate elevation. No floor of mouth gian a. No floor of mouth swelling. Tongue is midline. NECK: Supple. Trachea is midline. The patient able to point to area where her tenderness is. Slig htly tender in the right lower neck just below the clavicle. No neck swelling or expanding neck mass es. RESPIRATORY: Aerating well with no stridor and nonlabored breathing. Normal voice. VOICE: Strong, normal, no hoarseness. FIBEROPTIC ENT SCOPE: The patient was decongested with topical Afrin and lidocaine and a fiberoptic laryngoscope was inserted through the patient's right and left naris. The scope was advanced through the right naris all the way to the nasopharynx. No masses or lesions seen. The scope was then flex ed down and advanced to the oropharynx. No masses or lesions seen. The patient was instructed to st ick out her tongue. The scope was then advanced down towards the larynx. The epiglottis was visuali zed, the epiglottis was crisp without swelling. The vocal cords were then visualized. Vocal cord mo tion was unremarkable during examination. Arytenoids had some slight edema on the right, slight asym metry; however, the patient's phonation is unremarkable. The cords do approximate midline together; otherwise, no new lesion is seen within the larynx. The patient tolerated the procedure well. The s cope was removed without incident. ASSESSMENT AND PLAN: The patient is a 56-year-old female with a history of rheumatoid arthritis and new onset, which resolved, hoarseness. RECOMMEND: Supportive measures. The patient is currently being treated with cyclobenzaprine for nec k pain. Defer medical management of the neck pain to the medical team and neurology at this time. N o ENT surgical intervention at this time. Would recommend the patient follow up as an outpatient. R ecommend warm compresses to the neck for neck pain. Discussed with the patient, nursing as well as t he medical team. Martínez Stiles DO cc: [id number] TT: 01/14/2017 21:36:55 Confirmation # [id number] Dictation # [id number]
[2017-01-15] MEDS: Oxycodone/Acetaminophen 10/325 mg Tab PO PRN (06:27)
[2017-01-15] MEDS: Pantoprazole 40 mg EC Tab PO SCH (10:03)
--- NOTE | 2017-01-15 23:07 | HP ---
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 The patient states she was in average health last night when she was cooking. She has cervical disk fusion and w hen she moved her neck she felt a pop and after that she started to have pain on the right side of th e neck and after some time she lost her voice. She states it does happen in the morning hours becaus e she has a vocal cord nodule, but this was an unusual situation. She felt very weak and dizzy. She was having difficulty swallowing, so she came to Emergency Room for further evaluation. Denies any fever, no nausea, no vomiting, no diarrhea, no chest pain and no shortness. I was called by Dr. Young Jameson who went over with Dr. Héctor Bergman and there was questionable dissection of vertebral ar teries. The patient was started on anticoagulation and admitted in ICU for further close observation and further management. PAST MEDICAL HISTORY: 1. Significant for lupus. 2. She has generalized degenerative joint disease. 3. She has cervical disk disease with cervical disk fusion. 4. She had bilateral elbow nerve entrapment surgery. She also had surgery on her feet for joint eff usion. 5. Hypertension. 6. Generalized rheumatoid arthritis. 7. History of ankylosing spondylitis. 8. Chronic anemia. PAST SURGICAL HISTORY: Significant for 1. Appendectomy. 2. Cholecystectomy. 3. Status post tubal ligation. 4. Status post left shoulder and hand surgery. ALLERGIES: 1. SHE IS ALLERGIC TO ORAL CONTRAST AND INTRAVENOUS CONTRAST WHICH GIVES HER ITCHING. 2. LATEX ALLERGY. 3. GIVES HER ANGIONEUROTIC EDEMA. MEDICATIONS AT HOME: She is on Percocet as needed. She is on prednisone, Protonix 40 daily, hydroch lorothiazide and Xeljanz. SOCIAL HISTORY: She was a heavy smoker. She still smokes, does not use drugs or alcohol. REVIEW OF SYSTEMS: Significant for right-sided neck pain. Her voice has come back. Her dysphonia h ad completely resolved when she woke up this morning. She still has some neck pain, but more on the right side, but no focal deficit. PHYSICAL EXAMINATION: GENERAL: She is awake and alert, able to communicate. VITAL SIGNS: She is afebrile, pulse 91, respirations 18 and blood pressure 118/90. LUNGS: Bilateral fair airflow, no rhonchi or crackle. HEART: S1, S2 audible. ABDOMEN: Soft, nontender, no rebound and no guarding. NEUROLOGICAL: The patient is awake and alert. Communicative. HEAD AND NECK: Nonicteric sclerae. [place] conjunctivae. She is able to move her neck side to side, h as limited flexion . LABORATORY DATA: WBC is 5.9, hemoglobin 15, hematocrit 44 and platelets 199. PTT 122. Chemistry: Sodium 140, potassium 4.2, chloride 105, CO2 of 26, BUN 15, creatinine 0.7, blood sugar 102. LFTs ar e within normal limits. CT scan of the head was done that is unremarkable. CT scan of the neck was done that shows partial o pacification of ethmoid sinus, much greater on the left. There were no acute findings. Carotid Dopp ler study is pending. Thyroid sonogram is pending. ASSESSMENT: 1. Right-sided neck pain with dysphonia and hoarse voice with significant past medical history of la ryngeal polyp. 2. 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 3. Hypertension. 4. Hyperlipidemia. PLAN: At this point, the patient is being given Benadryl and steroids to prep for her CT. Carotid D oppler is pending. Discussed with Dr. Shetty. He does not feel that she needs any further interventio n. I will request a neurology evaluation by Dr. Ortiz. In the meantime, will DC her IV fluids and give her a dose of Norvasc since her blood pressure is running high. Awaiting ENT evaluation. Once the patient is evaluated by ENT and neurologist, will make further recommendation. If no further int ervention needed, discharge . Donte Meyer MD cc: [id number] TT: 01/14/2017 17:43:50
--- NOTE | 2017-01-24 01:58 | DS ---
DATE OF DISCHARGE: 01/15/2017. DISCHARGE DIAGNOSES: 1. Hoarseness of voice. 2. Leucocytosis 3. Monocytosis. 4. Rheumatoid arthritis. ASSESSMENT AND PLAN: The patient is a 56-year-old female admitted to the hospital with odynophagia, difficulty in swallowing. CAT scan of the neck was unremarkable. She was evaluated by ENT, treated with IV antibiotics. Hoarseness of voice improved. She also has granulocytosis and monocytosis, indicative of infection. She has history of rheumatoid arthritis. No issues during hospitalization. Her condition improved during hospitalization. She is being discharged in stable condition. PHYSICAL EXAMINATION: GENERAL: On discharge, comfortable in bed, in no acute distress. VITAL SIGNS: Temperature 98.7, heart rate 80 per minute, blood pressure 120/60. HEENT: Normal. NECK: Supple. No lymphadenopathy. CHEST: Air entry present, equal bilateral. No added sound. CARDIOVASCULAR: S1, S2 normal. No murmur, no gallop. ABDOMEN: Soft, nontender, no hepatosplenomegaly. EXTREMITIES: No edema. SPINE: Nontender. DISCHARGE CONDITION: Stable. Discharge home. DISCHARGE MEDICATIONS: Norvasc 5 mg daily, aspirin 81 mg daily, Pepcid 20 mg daily, Percocet p.r.n. CONDITION ON DISCHARGE: Stable. DISPOSITION: Discharge home. Follow up with Dr. Stiles in 1 week. Time spent in preparing discharge and coordinating care: 45 minutes. Jeannie Heaton MD cc: [id number] TT: 01/24/2017 01:57:11 [place]
== END 2017-01-15 11:50 | disposition home or self-care (01) | DRG 156 ==
LOC: ED 21:21 → ERH 01-14 00:21 → CCU 01-14 02:53 → 5RNO 01-14 20:22
PROVIDERS: ADMIT Internal Medicine; ATTEND Internal Medicine
PROC: 0CJS8ZZ Inspection of Larynx, Via Natural or Artificial Opening Endoscopic (ICD-10-PCS; principal; 2017-01-14)
DX: R49.0 Dysphonia (principal); I10 Essential (primary) hypertension; J38.1 Polyp of vocal cord and larynx; M06.9 Rheumatoid arthritis, unspecified; E78.5 Hyperlipidemia, unspecified; M50.80 Other cervical disc disorders, unspecified cervical region; D64.9 Anemia, unspecified; F17.210 Nicotine dependence, cigarettes, uncomplicated; Z91.040 Latex allergy status

== ENCOUNTER 2017-05-20 00:01 | Emergency (ER) | payer MEDICARE, OTHER ==
[2017-05-20 00:02] VITALS: BMI 27.1
[2017-05-20 00:09] VITALS: TEMP 98.1; O2SAT 97
[2017-05-20] MEDS ORDERED: DiphenhydrAMINE 12.5 mg/5 ml LIQ UD (5 ml) PO STA (00:53)
--- NOTE | 2017-05-20 00:54 | ED PDOC ---
Arrival/HPI - General Chief Complaint: Cough, Cold, Congestion Time Seen by Provider: 05/20/17 00:43 Historian: Patient - History of Present Illness Narrative History of Present Illness (Text): 05/20/17 00:54 This 56 yo female with pmh HTN, chronic sinusitis, presents to this ED c/o nasal congestion x 2 weeks. Patient stated she has seen her pmd, who had prescribed her Augmentin. She has been taking Augmentin for 10 days. Patient has an appointment to see her ENT in 3 days. Patient is requesting steroid shot to relief her congestion. She also noted cough, and feeling her throat is swelling x 2 days. Patient denies fever, cp, abdominal pain, skin rash, dizziness, or abnormal gait. Time/Duration: Other (see hpi) Context: Home Past Medical History - Provider Review Nursing Documentation Reviewed: Yes - Infectious Disease Hx of Infectious Diseases: None - Tetanus Immunization Tetanus Immunization: Up to Date, Unknown - Cardiac Hx Cardiac Disorders: Yes Hx Hypertension: Yes - Pulmonary Hx Respiratory Disorders: Yes Hx Chronic Obstructive Pulmonary Disease (COPD): Yes Hx Emphysema: Yes - Neurological Hx Neurological Disorder: Yes Hx Migraine: Yes - HEENT Hx HEENT Disorder: No - Renal Hx Renal Disorder: No - Endocrine/Metabolic Hx Endocrine Disorders: No - Hematological/Oncological Hx Blood Disorders: No - Integumentary Hx Dermatological Disorder: No - Musculoskeletal/Rheumatological Hx Arthritis: Yes Hx Rheumatoid Arthritis: Yes Other/Comment: spinedlyosis - Gastrointestinal Hx Gastrointestinal Disorders: No - Genitourinary/Gynecological Hx Genitourinary Disorders: No - Psychiatric Hx Depression: No Hx Emotional Abuse: No Hx Physical Abuse: No Hx Substance Use: No - Surgical History Hx Appendectomy: Yes Hx Cholecystectomy: Yes Hx Tubal Ligation: Yes Other/Comment: Triple fusion on the neck. [place] elbow surgery. [place] foot surgery. L shoulder surgery. Hand surgery - Anesthesia Hx Anesthesia: Yes Hx Anesthesia Reactions: No Hx Malignant Hyperthermia: No - Suicidal Assessment Feels Threatened In Home Enviroment: No Family/Social History - Physician Review Nursing Documentation Reviewed: Yes Family/Social History: Other (non-contributory) Smoking Status: Current Some Days Smoker Hx Alcohol Use: No Hx Substance Use: No Hx Substance Use Treatment: No Allergies/Home Meds Allergies/Adverse Reactions: Allergies Iodinated Contrast- Oral and IV Dye [Iodinated Contrast Media - IV Dye] Allergy (Verified 06/02/16 09:02) ITCHING CIMZIA Allergy (Intermediate, Uncoded 01/03/15 20:12) SHORTNESS OF BREATH LATEX Allergy (Mild, Uncoded 01/03/15 20:12) RASH cemzia Allergy (Uncoded 01/03/15 20:12) ANGIOEDEMA Home Medications: Home Meds Medication Instructions Recorded Confirmed Acetaminophen/Oxycodone Hydr 1 tab PO Q4H PRN 01/03/15 05/20/17 [Percocet 10/325 mg Tab] Hydrochlorothiazide [Microzide] 12.5 mg PO DAILY 06/02/16 05/20/17 Pantoprazole Sodium [Protonix] 40 mg PO DAILY 06/02/16 05/20/17 Tofacitinib Citrate [Xeljanz] 1 tab PO QOTHERDAY 06/02/16 05/20/17 Oxycodone HCl/Acetaminophen 1 tab PO DAILY 01/14/17 05/20/17 [Percocet 10-325 mg Tablet] Prednisone [Teodora] 1 tab PO PRN PRN 01/14/17 05/20/17 Losartan [Cozaar] 50 mg PO DAILY 05/20/17 05/20/17 Review of Systems - Review of Systems Constitutional: Normal. absent: Fatigue, Weight Change, Fevers Eyes: Normal ENT: Sinus Congestion Respiratory: Cough. absent: SOB, Sputum, Wheezing Cardiovascular: Normal. absent: Chest Pain Gastrointestinal: Normal. absent: Abdominal Pain, Nausea, Vomiting Genitourinary Female: Normal. absent: Dysuria, Frequency, Hematuria Musculoskeletal: Normal Skin: Normal. absent: Rash Neurological: Normal. absent: Headache, Dizziness, Focal Weakness, Gait Changes , Speech Changes, Facial Droop, Disequilibrium, Seizure Endocrine: Normal Hemo/Lymphatic: Normal Psychiatric: Normal Physical Exam Vital Signs Temp Pulse Resp BP Pulse Ox 05/20/17 02:18 97 H 19 149/90 97 05/20/17 00:08 98.1 F 116 H 20 202/124 H 97 Temperature: Afebrile Blood Pressure: Normal Pulse: Regular Respiratory Rate: Normal Appearance: Positive for: Well-Appearing, Non-Toxic, Comfortable Pain Distress: None Mental Status: Positive for: Alert and Oriented X 3 - Systems Exam Head: Present: Atraumatic, Normocephalic, Other (Mild sinus tenderness) Pupils: Present: PERRL Extroacular Muscles: Present: EOMI Conjunctiva: Present: Normal Mouth: Present: Moist Mucous Membranes Pharnyx: Present: Normal. No: ERYTHEMA, EXUDATE, TONSILS ENLARGED, Peritonsilar Swelling, Uvular Deviation, Muffled/Hoarse Voice, [place], Soft Palate/Uvular Edema Nose (External): Present: Atraumatic Nose (Internal): Present: Normal Inspection Neck: Present: Normal Range of Motion, Trachea Midline. No: Meningeal Signs, MIDLINE TENDERNESS, Paraspinal Tenderness, Lymphadenopathy Respiratory/Chest: Present: Good Air Exchange, Wheezes, Rhonchi. No: Respiratory Distress, Accessory Muscle Use, Decreased Breath Sounds, Rales, Retracting, Tachypneic Cardiovascular: Present: Regular Rate and Rhythm, Normal S1, S2. No: Murmurs Abdomen: Present: Normal Bowel Sounds. No: Tenderness, Distention, Peritoneal Signs Back: Present: Normal Inspection. No: CVA Tenderness Upper Extremity: Present: Normal Inspection, Normal ROM, NORMAL PULSES, Neurovascularly Intact, Capillary Refill < 2s. No: Cyanosis, Edema Lower Extremity: Present: Normal Inspection, NORMAL PULSES, Normal ROM, Neurovascularly Intact, Capillary Refill < 2 s. No: Edema, CALF TENDERNESS Neurological: Present: GCS=15, CN II-XII Intact, Speech Normal, Motor Func Grossly Intact, Normal Sensory Function, Normal Cerebellar Funct, Gait Normal Skin: Present: Warm, Dry, Normal Color. No: Rashes Psychiatric: Present: Alert, Oriented x 3, Normal Insight, Normal Concentration Medical Decision Making ED Course and Treatment: 05/20/17 02:09 Re-evaluation. Patient feels better. Discussed results and plan with patient who expresses understanding. All questions answered and there is agreement with the plan to discharge home with instructions. Patient stable for discharge. Return if symptoms persist or worsen 05/20/17 02:09 Patient tolerated PO fluids. I reviewed risk of the use of Prednisone or Solumedrol IM. The risk are not only but also AVN, osteoporosis, glaucoma, DM, kidney failure, liver failure, mood disorder. Patient understood risk, She stated she is very familiar with risk since she takes Prednisone PRN for her RA. She requested Steroid medication. Re-evaluation Time: 02:09 Reassessment Condition: Re-examined, Improved - RAD Interpretation Radiology Orders: 05/20/17 00:54 CHEST TWO VIEWS (PA/LAT) [RAD] Stat - Medication Orders Current Medication Orders: Discontinued Medications Albuterol/Ipratropium (Duoneb 3 Mg/0.5 Mg (3 Ml) Ud) 3 ml IH Q15M ROM Stop: 05/20/17 01:31 Last Admin: 05/20/17 01:14 Dose: 3 ml Diphenhydramine HCl (Benadryl) 25 mg PO STAT STA Stop: 05/20/17 00:54 Last Admin: 05/20/17 01:13 Dose: 25 mg Famotidine (Pepcid) 40 mg PO STAT STA Stop: 05/20/17 00:54 Last Admin: 05/20/17 01:13 Dose: 40 mg Methylprednisolone (Solu-Medrol) 125 mg IM STAT STA Stop: 05/20/17 00:53 Last Admin: 05/20/17 01:05 Dose: 125 mg IM Administration Charges Document 05/20/17 01:05 RD (Rec: 05/20/17 01:13 RD [id number]) Injection Site MAR Injection Site Right Gluteus Narinder Charges for Administration # of IM Administrations 1 Disposition/Present on Arrival - Present on Arrival Any Indicators Present on Arrival: No History of DVT/PE: No History of Uncontrolled Diabetes: No Urinary Catheter: No History of Decub. Ulcer: No History Surgical Site Infection Following: None - Disposition Have Diagnosis and Disposition been Completed?: Yes Diagnosis: Sinusitis, Hypertension Disposition: HOME/ ROUTINE Disposition Time: 02:10 Patient Plan: Discharge Patient Problems: Current Active Problems Problem Status Onset Sinusitis Acute Hypertension Acute Condition: GOOD Discharge Instructions (ExitCare): Sinusitis (ED) Additional Instructions: Call ENT office for follow up visit in 1-2 days. Take medication as instructed. Return to emergency if symptoms worsen. Do not use Afrin spray. Continue with Augmentin as recommended by your doctor. Have your bloop pressure recheck by your doctor tomorrow or Monday. Prescriptions: Fluticasone Nasal [Flonase] 1 spr NS BID #120 spr Prednisone [Deltasone] 60 mg PO DAILY #12 tablet Referrals: Adryan De Leon DO [Staff Provider] - Follow up with primary Forms: [employer] (Mongolian)
[2017-05-20] MEDS: Albuterol-Ipratrop 3 mg / 0.5 (3 ml) UD IH SCH ×2 (01:05→01:14)
[2017-05-20 02:18] VITALS: BP 149/90; PULSE 97; RESP 19
--- NOTE | 2017-05-20 11:36 | RAD ---
HISTORY: cough COMPARISON: No prior. TECHNIQUE: Chest PA and lateral FINDINGS: LUNGS: No active pulmonary disease. PLEURA: No significant pleural effusion identified. No pneumothorax apparent. CARDIOVASCULAR: Normal. OSSEOUS STRUCTURES: No significant abnormalities. VISUALIZED UPPER ABDOMEN: Normal. OTHER FINDINGS: None. IMPRESSION: No active disease.
== END 2017-05-20 02:29 | disposition home or self-care (01) ==
LOC: ED 00:01
DX: J32.9 Chronic sinusitis, unspecified (principal); I10 Essential (primary) hypertension
CPT/HCPCS: 71020; 96372; 99283; J2930

== ENCOUNTER 2017-11-11 02:54 | Inpatient (IN) | payer MEDICARE, OTHER ==
[2017-11-11 02:54] VITALS: BMI 27.1
[2017-11-11] MEDS ORDERED: Morphine 4 mg/ml ISec IVP STA (03:12)
--- NOTE | 2017-11-11 03:32 | ED PDOC ---
Arrival/HPI - General Historian: Patient - History of Present Illness Time/Duration: 4-6 hours Symptom Onset: Gradual Symptom Course: Worsening Quality: Burning, Throbbing Activities at Onset: Rest <Tio Roman - Last Filed: 11/11/17 06:03> <Titus Mckeon - Last Filed: 11/11/17 06:22> - General Chief Complaint: Lower Extremity Problem/Injury Time Seen by Provider: 11/11/17 03:09 - History of Present Illness Narrative History of Present Illness (Text): 11/11/17 03:29 Patient is a 57F with a PMH of RA, spinal stenosis and s/p ORIF of the R. Ankle yesterday presents with R. ankle pain. She states she took a percocet 10mg at 1am but the pain in her leg continued to get worse. She takes percocet 10mg on a regular basis for her back and neck pain. Patient denies any shortness of breath or chest pain. She denies any numbness or paralysis of the lower extremity. She denies any fevers or chills. 11/11/17 04:01 Pain uncontrolled with morphine, will give Dilaudid and reassess Ankle xray unremarkable (Tio Roman) Past Medical History - Infectious Disease Hx of Infectious Diseases: None - Tetanus Immunization Tetanus Immunization: Up to Date, Unknown - Cardiac Hx Cardiac Disorders: Yes Hx Hypertension: Yes - Pulmonary Hx Respiratory Disorders: Yes Hx Chronic Obstructive Pulmonary Disease (COPD): Yes Hx Emphysema: Yes - Neurological Hx Neurological Disorder: Yes Hx Migraine: Yes - HEENT Hx HEENT Disorder: No - Renal Hx Renal Disorder: No - Endocrine/Metabolic Hx Endocrine Disorders: No - Hematological/Oncological Hx Blood Disorders: No - Integumentary Hx Dermatological Disorder: No - Musculoskeletal/Rheumatological Hx Arthritis: Yes Hx Rheumatoid Arthritis: Yes Other/Comment: spinedlyosis - Gastrointestinal Hx Gastrointestinal Disorders: No - Genitourinary/Gynecological Hx Genitourinary Disorders: No - Psychiatric Hx Depression: No Hx Emotional Abuse: No Hx Physical Abuse: No Hx Substance Use: No - Surgical History Hx Appendectomy: Yes Hx Cholecystectomy: Yes Hx Tubal Ligation: Yes Other/Comment: Triple fusion on the neck. Jean Carlos elbow surgery. Jean Carlos foot surgery. L shoulder surgery. Hand surgery - Anesthesia Hx Anesthesia: Yes Hx Anesthesia Reactions: No Hx Malignant Hyperthermia: No - Suicidal Assessment Feels Threatened In Home Enviroment: No <Tio Roman - Last Filed: 11/11/17 06:03> - Provider Review Nursing Documentation Reviewed: Yes <Titus Mckeon - Last Filed: 11/11/17 06:22> Family/Social History Family/Social History: Unknown Family HX Smoking Status: Current Some Days Smoker Hx Alcohol Use: No Hx Substance Use: No Hx Substance Use Treatment: No <Tio Roman - Last Filed: 11/11/17 06:03> - Physician Review Nursing Documentation Reviewed: Yes <Titus Mckeon - Last Filed: 11/11/17 06:22> Allergies/Home Meds <Tio Roman - Last Filed: 11/11/17 06:03> <Titus Mckeon - Last Filed: 11/11/17 06:22> Allergies/Adverse Reactions: Allergies Iodinated Contrast- Oral and IV Dye [Iodinated Contrast Media - IV Dye] Allergy (Verified 06/02/16 09:02) ITCHING CIMZIA Allergy (Intermediate, Uncoded 01/03/15 20:12) SHORTNESS OF BREATH LATEX Allergy (Mild, Uncoded 01/03/15 20:12) RASH cemzia Allergy (Uncoded 01/03/15 20:12) ANGIOEDEMA Home Medications: Home Meds Medication Instructions Recorded Confirmed Acetaminophen/Oxycodone Hydr 1 tab PO Q4H PRN 01/03/15 11/11/17 [Percocet 10/325 mg Tab] Hydrochlorothiazide [Microzide] 12.5 mg PO DAILY 06/02/16 11/11/17 Pantoprazole Sodium [Protonix] 40 mg PO DAILY 06/02/16 11/11/17 Tofacitinib Citrate [Xeljanz] 1 tab PO QOTHERDAY 06/02/16 11/11/17 Oxycodone HCl/Acetaminophen 1 tab PO DAILY 01/14/17 11/11/17 [Percocet 10-325 mg Tablet] Prednisone [Teodora] 1 tab PO PRN PRN 01/14/17 11/11/17 Losartan [Cozaar] 50 mg PO DAILY 05/20/17 11/11/17 Review of Systems - Review of Systems Constitutional: Normal Eyes: Normal ENT: Normal Respiratory: Normal. absent: SOB Cardiovascular: Normal. absent: Chest Pain Gastrointestinal: Normal Genitourinary Female: Normal Musculoskeletal: Other (severe pain of the R. ankle) Skin: Normal Neurological: Normal Endocrine: Normal Hemo/Lymphatic: Normal Psychiatric: Normal <AbelTio - Last Filed: 11/11/17 06:03> - Physician Review All systems were reviewed & negative as marked: Yes <MikeTiuts - Last Filed: 11/11/17 06:22> Physical Exam Temperature: Afebrile Blood Pressure: Hypertensive Pulse: Tachycardic Respiratory Rate: Normal Appearance: Positive for: Uncomfortable Pain Distress: Moderate Mental Status: Positive for: Alert and Oriented X 3 - Systems Exam Head: Present: Atraumatic, Normocephalic Pupils: Present: PERRL Extroacular Muscles: Present: EOMI Conjunctiva: Present: Normal Mouth: Present: Moist Mucous Membranes Neck: Present: Normal Range of Motion Respiratory/Chest: Present: Clear to Auscultation, Good Air Exchange. No: Accessory Muscle Use Cardiovascular: Present: Regular Rate and Rhythm, Normal S1, S2. No: Murmurs Abdomen: Present: Normal Bowel Sounds. No: Tenderness, Distention, Peritoneal Signs Upper Extremity: Present: Normal Inspection. No: Cyanosis, Edema Lower Extremity: Present: Other (Right lower leg with splint and christie wrap. Able to move extremity, move toes, DP 2+, extremity is warm, no parasethias ) Neurological: Present: GCS=15, CN II-XII Intact Skin: Present: Warm, Dry, Normal Color. No: Rashes Psychiatric: Present: Alert, Oriented x 3 <AnatoliynaziaTio - Last Filed: 11/11/17 06:03> Vital Signs Reviewed: Yes <MikeTitus - Last Filed: 11/11/17 06:22> Vital Signs Temp Pulse Resp BP Pulse Ox 11/11/17 03:02 98.5 F 104 H 17 159/80 H 96 Medical Decision Making <AbelTio - Last Filed: 11/11/17 06:03> <MikeTitus - Last Filed: 11/11/17 06:22> ED Course and Treatment: 11/11/17 03:37 removed christie wrap, inspected the leg, no signs of compartment syndrome. Rewrapped the leg. Morphine for pain control xray pending 11/11/17 06:03 Despite dilaudid 1mg IV x 2 and morphine pain is not controlled. Plan to admit ( Tio Roman) Patient Seen With Resident: In agreement with resident note which contains more details about the patient. Patient was seen and evaluated with resident. Came up with plan and treatment together. 57 year old female presents complaining of right ankle pain that began yesterday. Plan: -- Morphone -- Zofran Inj -- Ankle Right 3 Views X-ray --Reassess and disposition 11/11/17 06:20 Case was d/w who accepted the patient to her service for further management of her intractable pain. on orthopedic consult. (Titus Mckeon) - RAD Interpretation Radiology Orders: 11/11/17 03:14 ANKLE RIGHT 3 VIEWS ROUTINE [RAD] Stat - Medication Orders Current Medication Orders: Discontinued Medications Hydromorphone HCl (Dilaudid) 1 mg IVP STAT STA Stop: 11/11/17 03:59 Last Admin: 11/11/17 04:05 Dose: 1 mg MAR Pain Assessment Document 11/11/17 04:05 JACKSON (Rec: 11/11/17 04:05 JACKSON [id number]) Pain Reassessment Is this a pain reassessment? Yes Presence of Pain Presence of Pain Yes Pain Scale Used Pain Scale Used Numeric Description Description Constant Pain Behavior Moaning IVP Administration Document 11/11/17 04:05 JACKSON (Rec: 11/11/17 04:05 JACKSON [id number]) Charges for Administration # of IVP Administrations 1 Hydromorphone HCl (Dilaudid) 4 mg IVP STAT STA Stop: 11/11/17 05:04 Last Admin: 11/11/17 05:12 Dose: 4 mg MAR Pain Assessment Document 11/11/17 05:12 JACKSON (Rec: 11/11/17 05:12 JACKSON [id number]) Pain Reassessment Is this a pain reassessment? Yes IVP Administration Document 11/11/17 05:12 JACKSON (Rec: 11/11/17 05:12 JACKSON [id number]) Charges for Administration # of IVP Administrations 1 Morphine Sulfate (Morphine) 4 mg IVP STAT STA Stop: 11/11/17 03:13 Last Admin: 11/11/17 03:35 Dose: 4 mg MAR Pain Assessment Document 11/11/17 03:35 JACKSON (Rec: 11/11/17 03:39 JACKSON [id number]) Pain Reassessment Is this a pain reassessment? No IVP Administration Document 11/11/17 03:35 JACKSON (Rec: 11/11/17 03:39 JACKSON [id number]) Charges for Administration # of IVP Administrations 1 Ondansetron HCl (Zofran Inj) 4 mg IVP STAT STA Stop: 11/11/17 03:47 Last Admin: 11/11/17 04:05 Dose: 4 mg IVP Administration Document 11/11/17 04:05 JACKSON (Rec: 11/11/17 04:05 JACKSON [id number]) Charges for Administration # of IVP Administrations 1 - PA / CANVASS MANAGER / Resident Statement / has reviewed & agrees with the documentation as recorded. MD/ has examined the patient and agrees with the treatment plan. <Tio Roman - Last Filed: 11/11/17 06:03> - PA / CANVASS MANAGER / Resident Statement / has reviewed & agrees with the documentation as recorded. / has examined the patient and agrees with the treatment plan. - Scribe Statement The provider has reviewed the documentation as recorded by the Scribe <Titus Mckeon - Last Filed: 11/11/17 06:22> - Scribe Statement Dagoberto Montaño Provider Scribe Attestation: All medical record entries made by the Scribe were at my direction and personally dictated by me. I have reviewed the chart and agree that the record accurately reflects my personal performance of the history, physical exam, medical decision making, and the department course for this patient. I have also personally directed, reviewed, and agree with the discharge instructions and disposition. (Titus Mckeon) Disposition/Present on Arrival - Present on Arrival Any Indicators Present on Arrival: No History of DVT/PE: No History of Uncontrolled Diabetes: No Urinary Catheter: No History of Decub. Ulcer: No History Surgical Site Infection Following: None - Disposition Have Diagnosis and Disposition been Completed?: Yes Disposition Time: 06:04 Patient Plan: Admission <Tio Roman - Last Filed: 11/11/17 06:03> - Present on Arrival Any Indicators Present on Arrival: No History of DVT/PE: No History of Uncontrolled Diabetes: No Urinary Catheter: No History of Decub. Ulcer: No History Surgical Site Infection Following: None - Disposition Have Diagnosis and Disposition been Completed?: Yes Disposition Time: 06:20 Patient Plan: Observation <Titus Mckeon - Last Filed: 11/11/17 06:22> - Disposition Diagnosis: Intractable pain, Status post ORIF of fracture of ankle Disposition: HOSPITALIZED Patient Problems: Current Active Problems Problem Status Onset Intractable pain Acute Condition: FAIR Referrals: Lalo Roberson MD [Primary Care Provider] - Follow up with primary Forms: [employer] ([place])
[2017-11-11] MEDS ORDERED: HYDROmorphone 0.5 mg/0.5 ml ISec IVP STA (03:58)
[2017-11-11] MEDS ORDERED: HYDROmorphone 0.5 mg/0.5 ml ISec ONE (04:02)
[2017-11-11 07:11] LABS: MEAN CORPUSCULAR HEMOGLOBIN 30.5 pg (25.0-35.0); MEAN CORPUSCULAR HGB CONC 34.7 g/dl (31.0-37.0); MEAN PLATELET VOLUME 10.3 fl (7.0-11.0); RBC 4.59 10^6/uL (3.5-6.1); WHITE BLOOD COUNT 11.3 10^3/ul (4.5-11.0)
[2017-11-11 07:22] LABS: ALB/GLOB RATIO 1.4 (1.1-1.8); ALBUMIN 4.1 g/dL (3.0-4.8); ALT/SGPT 27 U/L (7-56); AST/SGOT 18 U/L (14-36); BLOOD UREA NITROGEN 13 mg/dL (7-21); GFR AFRICAN-AMERICAN > 60; GFR NON-AFRICAN AMERICAN > 60
[2017-11-11] MEDS ORDERED: HYDROmorphone 2 mg/ml ISec IVP PRN (08:00)
[2017-11-11] MEDS ORDERED: HYDROmorphone 0.5 mg/0.5 ml ISec IVP PRN (08:14)
[2017-11-11] MEDS: Pantoprazole 40 mg EC Tab PO SCH (09:29)
--- NOTE | 2017-11-11 09:49 | RAD ---
PROCEDURE: Right Ankle Radiographs. HISTORY: ORIF COMPARISON: None FINDINGS: BONES: Normal. No fractureBile bulla earlier fractures of been treated by open reduction internal fixation with compression plate and multiple screws transfixing the lateral malleolar fracture and 2 screws reducing the medial malleolar fracture. Skin denis are identified overlying the operative sites with limited soft edema surrounding the ankle extending into the midfoot of the the dorsal midfoot soft tissues as well. JOINTS: Normal. No osteoarthritis. Ankle mortise maintained. Talar dome intact SOFT TISSUES: As above. OTHER FINDINGS: None. IMPRESSION: Stabilized reduced bimalleolar fractures status post ORIF as discussed above.
[2017-11-11] MEDS ORDERED: Oxycodone/Acetaminophen 10/325 mg Tab PO PRN (12:08)
[2017-11-11] MEDS: Morphine 4 mg/ml ISec IVP PRN ×2 (12:38→18:23)
[2017-11-11] MEDS ORDERED: Pneumococcal 23-Valent Vaccine IM ONE (14:27)
[2017-11-11] MEDS ORDERED: Influenza Vaccine 60 mcg/0.5 mL SYR (4YR UP) IM ONE (14:27)
[2017-11-11] MEDS: Oxycodone/Acetaminophen 10/325 mg Tab PO PRN ×2 (15:02→20:32)
[2017-11-12] MEDS: Morphine 4 mg/ml ISec IVP PRN ×5 (00:06→19:57)
--- NOTE | 2017-11-12 00:48 | CP.PCM.PN ---
Subjective - Date & Time of Evaluation Date of Evaluation: 11/12/17 Time of Evaluation: 00:20 - Subjective Subjective: S: Patient in pain, needed IV morphine. Has difficult IV access. I was requested to imserta a heaprin lock. No other compalints. Pertinent medical record was reviwed. O: Last Vital Signs 3 Temp 98.4 F 11/11/17 16:00 Pulse 90 11/11/17 16:00 Resp 18 11/11/17 16:00 BP 149/84 11/11/17 16:00 Pulse Ox 95 11/11/17 16:00 Awake, alert. LUNGS: Normal breathing pattern. A:Poor venous acces. P:# 22 angiocath was inserted in left forearm. Objective - Vital Signs/Intake and Output Vital Signs (last 24 hours): Temp Pulse Resp BP Pulse Ox 98.4 F 90 18 149/84 95 11/11/17 16:00 11/11/17 16:00 11/11/17 16:00 11/11/17 16:00 11/11/17 16:00 Intake and Output: 11/11/17 11/12/17 18:59 06:59 Intake Total 600 Output Total 500 Balance 100 - Medications Medications: Current Medications Amlodipine Besylate (Norvasc) 5 mg PO DAILY [facility] Last Admin: 11/11/17 09:36 Dose: Not Given Docusate Sodium (Colace) 100 mg PO BID [facility] Last Admin: 11/11/17 18:28 Dose: 100 mg Enoxaparin Sodium (Lovenox) 40 mg SC DAILY [facility] PRN Reason: Protocol Losartan Potassium (Cozaar) 50 mg PO DAILY [facility] Last Admin: 11/11/17 09:29 Dose: 50 mg Meloxicam (Mobic) 15 mg PO DAILY [facility] Last Admin: 11/11/17 09:28 Dose: 15 mg Morphine Sulfate (Morphine) 4 mg IVP Q4H PRN PRN Reason: Pain, severe (8-10) Last Admin: 11/12/17 00:06 Dose: 4 mg Nicotine (Nicoderm Cq) 1 patch TD DAILY [facility] Last Admin: 11/11/17 09:30 Dose: 1 patch Oxycodone/Acetaminophen (Percocet 10/325 Mg Tab) 1 tab PO Q6H PRN PRN Reason: Pain, moderate (4-7) Last Admin: 11/11/17 20:32 Dose: 1 tab Pantoprazole Sodium (Protonix Ec Tab) 40 mg PO 0600 ROM Last Admin: 11/11/17 09:29 Dose: 40 mg
[2017-11-12] MEDS: Oxycodone/Acetaminophen 10/325 mg Tab PO PRN ×4 (02:54→23:00)
--- NOTE | 2017-11-12 03:40 | HP ---
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 Patient has significant past medical history of rheumatoid arthritis. She had multiple surgeries on her spine with history of spinal fusion, left shoulder surgery requiring reconstructive surgery, bilateral elbow tendon repair, she also has spinal stenosis and had 2 disk fusions couple of years ago. Patient states, because of her worsening spinal stenosis, her left leg gave up and she fell and sustained right ankle fracture last Monday, almost a week ago. So she was taken to [facility] where she had cast placed and she was advised to see her own private orthopedist, Dr. Lombardo, who did preadmission testing and patient was operated yesterday on her right ankle, underwent open reduction internal fixation. Patient was supposed to be admitted; however, she was discharged the same day. In the middle of night, patient started excruciating pain in her right ankle. She usually takes Percocet 10 mg, but states her pain was not improving. No history of fever or chills. No nausea or vomiting. No diarrhea. PAST MEDICAL HISTORY: Significant for: 1. Spinal stenosis. 2. Generalized osteoarthritis and rheumatoid arthritis. 3. History of lupus. 4. Severe cervical disk disease requiring cervical disk fusion. 5. Hypertension. 6. History of ankylosing spondylitis. 7. Chronic anemia. SURGICAL HISTORY: Significant for appendectomy, cholecystectomy, status post tubal ligation, left shoulder and hand surgery. ALLERGIES: SHE IS ALLERGIC TO ORAL CONTRAST, INTRAVENOUS DYE, LATEX ALLERGY. MEDICATIONS AT HOME: She is on amlodipine 5 mg daily. She is on Xeljanz 1 tablet daily, prednisone 10 mg daily, Protonix 40 daily, losartan 50 mg daily, hydrochlorothiazide, Flexeril, aspirin, Percocet 10/325 every 6 hours as needed. SOCIAL HISTORY: She is a retired ER physician. Denies smoking, drinking or alcohol use. PHYSICAL EXAMINATION: GENERAL: She is awake and alert. Right ankle pain. VITAL SIGNS: She is afebrile, pulse 90, respirations 18, blood pressure 149/84. LUNGS: Bilateral fair airflow. No rhonchi or crackles. HEART: S1, S2 audible. ABDOMEN: Soft, nontender. No rebound. No guarding. NEUROLOGIC: Patient is awake, alert and oriented. Right ankle is in cast. Her toes seem to be warm. She is able to wriggle her toes. LABORATORY DATA: WBC 11.3, hemoglobin 14, hematocrit 40, platelet 232. Chemistry, sodium 140, potassium 3.5, chloride 101, CO2 of 28, BUN 13, creatinine 0.6. Blood sugar of 166. X-ray of the ankle shows reduced bimalleolar fracture status post open reduction and internal fixation. X-ray chest has no active disease. ASSESSMENT: 1. Intractable right ankle pain postop. 2. Severe spinal stenosis. 3. Generalized osteoarthritis. 4. Hypertension. PLAN: We will continue patient on her usual medications including losartan. We will start her on antiinflammatory medications, that is Mobic 15 mg daily. We will give her morphine 4 mg every 4 hour and give her Percocet for breakthrough pain. We will request physical therapy evaluation. I will put her on DVT prophylaxis, that is Lovenox. I spoke to Dr. Lombardo who thinks that patient has a lot of comorbidities including severe spinal stenosis, ankylosing spondylitis, bilateral shoulder pain and degenerative disk disease. She is high risk for fall at home. She needs to control her pain medications since she has developed tolerance to oral analgesics and she needs subacute rehab, probably TCU. Donte Meyer MD
[2017-11-12] MEDS: Pantoprazole 40 mg EC Tab PO SCH (05:43)
[2017-11-12] MEDS: Enoxaparin 40 mg Syringe SC SCH (09:35)
[2017-11-12] MEDS: POLYETHYLENE GLYCOL 3350 17 GM/Dose PACKET PO SCH (10:57)
--- NOTE | 2017-11-12 17:17 | PN ---
DATE: SUBJECTIVE: The patient is 57-year-old, seen and examined, still very uncomfortable in her right ankle, just a little bit better, still requiring IV analgesics. The patient states she has back pain, she has right ankle pain, today it is 8-9/10, still requiring Percocet for breakthrough pain. PHYSICAL EXAMINATION: GENERAL: Today, she seems a little bit better. VITAL SIGNS: She is afebrile, pulse 71, respirations 20, blood pressure 151/80. LUNGS: Bilateral good air flow. No rhonchi or crackle. HEART: S1 and S2 audible. ABDOMEN: Soft, nontender. No rebound. No guarding. NEUROLOGIC: The patient is awake, alert, oriented, able to communicate. EXTREMITIES: Right ankle is in the heavy brace. Her right foot toes are warm and able to wiggle her toes. ASSESSMENT: 1. Status post fall and right ankle open reduction and internal fixation. 2. Generalized osteoarthritis. 3. Severe spinal stenosis. 4. History of hypertension. 5. Constipation. PLAN: I will continue the patient on current medication including Mobic. She is on DVT prophylaxis. She is requiring morphine 4 mg every 4 hours and Percocet in between. Request for physical therapy evaluation, nonweightbearing. Request for TCU evaluation. If accepted, can be transferred to TCU for rehab and pain control. The patient is high risk to fall since she lives by herself. Donte Meyer MD
[2017-11-13] MEDS: Morphine 4 mg/ml ISec IVP PRN ×2 (03:45→19:51)
[2017-11-13] MEDS: Pantoprazole 40 mg EC Tab PO SCH (06:31)
[2017-11-13] MEDS: Oxycodone/Acetaminophen 10/325 mg Tab PO PRN ×3 (08:12→17:44)
[2017-11-13] MEDS: Enoxaparin 40 mg Syringe SC SCH (10:18)
[2017-11-13] MEDS: POLYETHYLENE GLYCOL 3350 17 GM/Dose PACKET PO SCH (10:19)
[2017-11-13 12:35] LABS: MEAN CELL VOLUME 88.8 fl (80.0-105.0); MEAN CORPUSCULAR HEMOGLOBIN 30.2 pg (25.0-35.0); MEAN CORPUSCULAR HGB CONC 34.1 g/dl (31.0-37.0); RBC 4.63 10^6/uL (3.5-6.1); RED CELL DISTRIBUTION WIDTH 12.9 % (11.5-14.5); WHITE BLOOD COUNT 7.5 10^3/ul (4.5-11.0)
[2017-11-13 12:48] LABS: ALB/GLOB RATIO 1.3 (1.1-1.8); ALT/SGPT 29 U/L (7-56); AST/SGOT 22 U/L (14-36); BLOOD UREA NITROGEN 20 mg/dL (7-21); CALCIUM 10.1 mg/dL (8.4-10.5); GFR AFRICAN-AMERICAN > 60; GFR NON-AFRICAN AMERICAN > 60
--- NOTE | 2017-11-13 13:07 | PN ---
DATE: SUBJECTIVE: The patient is 57 years old, seen and examined, lying in bed. She states last night she had a rough night, she was in a lot of pain. Medial aspect of surgical site was very painful. Even IV analgesics were not helping. PHYSICAL EXAMINATION: VITAL SIGNS: She is afebrile, pulse 73, respirations 18, blood pressure 147/82. LUNGS: Bilateral good airflow. No rhonchi or crackle. HEART: S1 and S2 audible. ABDOMEN: Soft. Nontender. No rebound. No guarding. NEUROLOGIC: The patient is awake, alert, oriented, able to communicate. LABORATORY EXAM: WBC is 11.3, hemoglobin 14, hematocrit 40, platelet of 232. Chemistry: Sodium 140, potassium 3.5, chloride 101, CO2 of 28, BUN 13, creatinine 0.6, blood sugar of 166. ASSESSMENT: 1. Intractable right foot pain, status post open reduction and internal fixation. 2. History of generalized osteoarthritis. 3. Multiple surgeries on her bilateral shoulders, spinal fusion, cervical and lumbosacral area and bilateral knee osteoarthritis. 4. Constipation. PLAN: The patient is currently on losartan. DVT prophylaxis. We will continue on morphine every 4 as needed and we will start her on Percocet every 4 hours as needed for breakthrough pain. The states last night her pain was 10/10 and because her medication was not enough. I spoke to Medical Specialist, in the progress of negotiating with insurance company to send her to TCU. It sounds if discharged, she has no help at home and she has preexisting generalized rheumatoid arthritis and osteoporosis. Also, multiple joint surgery including her both shoulders, elbows, lower back, cervical area. Her gait is very unstable. She is a good candidate to be transferred to TCU for gait training and pain control. Donte Meyer MD
[2017-11-14] MEDS: Oxycodone/Acetaminophen 10/325 mg Tab PO PRN ×3 (00:13→10:09)
[2017-11-14 04:56] VITALS: RESP 20; TEMP 98.2; O2SAT 98
[2017-11-14] MEDS: Pantoprazole 40 mg EC Tab PO SCH (06:06)
[2017-11-14] MEDS: Enoxaparin 40 mg Syringe SC SCH (10:10)
[2017-11-14 10:12] VITALS: BP 130/71; PULSE 73
--- NOTE | 2017-11-15 15:22 | DS ---
HISTORY OF PRESENT ILLNESS: The patient is a 57 years old who fell almost a week ago when her knee gave out. She sustained bimalleolar fracture of the right ankle. She underwent open reduction and internal fixation, but she was discharged from the same-day surgery. She got surgery under nerve block. When her effect wore off, she started to have excruciating pain in her right ankle. It was unbearable. Patient has been on Percocet. Probably, she has developed dependence, so she called ambulance and was brought to emergency room. Patient states she usually has a very high tolerance for the pain, but the pain was unbearable. So, she came to the emergency room. She was admitted for pain control. She needed physical therapy, being transferred to TCU today. PAST MEDICAL HISTORY: Significant for rheumatoid arthritis and hypertension. PAST SURGICAL HISTORY: She had multiple surgeries for cervical spinal fusion and lumbosacral spinal fusion. PHYSICAL EXAMINATION: GENERAL: On examination today, she seems to be comfortable. VITAL SIGNS: She is afebrile, pulse 73, respirations 20, blood pressure 130/71. LUNGS: Bilateral good airflow. No rhonchi or crackles. HEART: S1, S2 audible. ABDOMEN: Soft, nontender. No rebound. No guarding. NEUROLOGICAL: Patient is awake, alert, oriented, communicative. EXTREMITIES: Right foot is in the cast and is warm and able to wiggle her toes. ASSESSMENT: 1. Status post fall. 2. Status post right ankle bimalleolar fracture and open reduction and internal fixation. 3. Hypertension. 4. History of rheumatoid arthritis. 5. Multiple bilateral shoulder, bilateral elbow and spinal surgeries. PLAN: Patient is being transferred to TCU where she will receive physical therapy and we will continue her pain medication and will follow up this patient in TCU. Donte Meyer MD
== END 2017-11-14 12:32 | DRG 561 ==
LOC: ED 02:54 → ERH 06:17 → 3RNO 07:36 → OBSVTOIN 19:58
PROVIDERS: ADMIT Internal Medicine; ATTEND Internal Medicine
DX: T84.84XA Pain due to internal orthopedic prosthetic devices, implants and grafts, initial encounter (principal); J43.9 Emphysema, unspecified; S82.844D Nondisplaced bimalleolar fracture of right lower leg, subsequent encounter for closed fracture with routine healing; I10 Essential (primary) hypertension; K59.00 Constipation, unspecified; M06.9 Rheumatoid arthritis, unspecified; M17.0 Bilateral primary osteoarthritis of knee; M45.9 Ankylosing spondylitis of unspecified sites in spine; M48.00 Spinal stenosis, site unspecified; Z79.82 Long term (current) use of aspirin; Z79.899 Other long term (current) drug therapy; Z90.49 Acquired absence of other specified parts of digestive tract; Z98.1 Arthrodesis status; Z98.51 Tubal ligation status; M81.0 Age-related osteoporosis without current pathological fracture; D64.9 Anemia, unspecified; Z91.041 Radiographic dye allergy status; Z91.040 Latex allergy status; M51.36 Other intervertebral disc degeneration, lumbar region; Y84.8 Other medical procedures as the cause of abnormal reaction of the patient, or of later complication, without mention of misadventure at the time of the procedure

== ENCOUNTER 2017-11-14 12:32 | Inpatient (IN) | payer MEDICARE, OTHER ==
[2017-11-14 13:00] VITALS: BMI 27.2
[2017-11-14] MEDS ORDERED: Morphine 4 mg/ml ISec IVP PRN ×2 (13:03→19:44)
[2017-11-14] MEDS ORDERED: Oxycodone/Acetaminophen 10/325 mg Tab PO PRN (13:03)
[2017-11-14] MEDS ORDERED: Pneumococcal 23-Valent Vaccine IM ONE (14:02)
[2017-11-14] MEDS ORDERED: Influenza Vaccine 60 mcg/0.5 mL SYR (4YR UP) IM ONE (14:02)
[2017-11-14] MEDS ORDERED: Morphine 4 mg/ml ISec IVP SCH (19:45)
[2017-11-14] MEDS: Oxycodone/Acetaminophen 10/325 mg Tab PO SCH ×2 (20:00→23:48)
[2017-11-15] MEDS: Oxycodone/Acetaminophen 10/325 mg Tab PO SCH ×7 (01:24→21:45)
[2017-11-15] MEDS: Pantoprazole 40 mg EC Tab PO SCH (05:54)
[2017-11-15 06:55] LABS: BASO # 0.05 K/mm3 (0.0-2.0); BASO % 0.8 % (0.0-3.0); EOS # 0.1 (0.0-0.7); EOS % 2.1 % (1.5-5.0); GRAN # 3.49 (1.4-6.5); GRAN % 52.8 % (50.0-68.0); HEMOGLOBIN 13.3 g/dL (12.0-16.0); LYMPH # 2.3 (1.2-3.4); LYMPH % 34.5 % (22.0-35.0); MEAN CELL VOLUME 88.1 fl (80.0-105.0); MEAN CORPUSCULAR HEMOGLOBIN 29.8 pg (25.0-35.0); MEAN CORPUSCULAR HGB CONC 33.8 g/dl (31.0-37.0); MONO # 0.7 (0.1-0.6); MONO % 9.8 % (1.0-6.0); RBC 4.46 10^6/uL (3.5-6.1); RED CELL DISTRIBUTION WIDTH 12.7 % (11.5-14.5); WHITE BLOOD COUNT 6.6 10^3/ul (4.5-11.0)
[2017-11-15 07:04] LABS: ALB/GLOB RATIO 1.3 (1.1-1.8); ALBUMIN 3.8 g/dL (3.0-4.8); ALT/SGPT 34 U/L (7-56); AST/SGOT 22 U/L (14-36); BLOOD UREA NITROGEN 18 mg/dL (7-21); CALCIUM 10.1 mg/dL (8.4-10.5); GFR AFRICAN-AMERICAN > 60; GFR NON-AFRICAN AMERICAN > 60
[2017-11-15] MEDS: Enoxaparin 40 mg Syringe SC SCH (09:50)
[2017-11-15] MEDS: POLYETHYLENE GLYCOL 3350 17 GM/Dose PACKET PO SCH (09:53)
[2017-11-16] MEDS: Oxycodone/Acetaminophen 10/325 mg Tab PO SCH ×5 (02:34→21:34)
[2017-11-16] MEDS: Pantoprazole 40 mg EC Tab PO SCH (05:52)
--- NOTE | 2017-11-16 08:18 | HP ---
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 Patient has a significant past medical history of generalized rheumatoid arthritis, spinal stenosis, multiple joint surgeries. Patient states because of her worsening spinal stenosis, her knee gave in and she fell almost 10 days ago, and she had open reduction and internal fixation done on 11/10, and she had surgery done under regional block. When the anesthesia effect wore off, she had intractable pain in her right ankle, she could not tolerate, so she called ambulance and was brought to emergency room. She was given IV analgesic with some relief. She needed rehab, so was transferred to TCU yesterday for nonweightbearing physical therapy. PAST MEDICAL HISTORY: She has significant past medical history of, 1. Hypertension. 2. Rheumatoid arthritis. 3. Cervical disk fusion. 4. Bilateral ulnar nerve entrapment surgery. 5. Bilateral shoulder ligament surgery. 6. Status post multiple epidurals. ALLERGIES: SHE IS ALLERGIC TO IODINATED CONTRAST, ORAL AND IV DYE, AND LATEX. MEDICATION AT HOME: She is on hydrochlorothiazide 12.5 daily, Flexeril 5 mg three times a day, aspirin 81 daily, Percocet, Protonix 40 daily, Cozaar 50 mg daily, amlodipine 5 mg daily, prednisone 5 mg daily, MiraLax, nicotine, and Mobic. SOCIAL HISTORY: She is single. Lives by herself. Used to be a heavy smoker, cut down a lot. PHYSICAL EXAMINATION: GENERAL: She is awake, alert, oriented, communicative. Lying in bed. Right foot is elevated. VITAL SIGNS: She is afebrile, pulse 81, respirations 18, blood pressure 128/76. LUNGS: Bilateral good airflow with no rhonchi or crackle. HEART: S1 and S2, audible. ABDOMEN: Soft, nontender. No rebound. No guarding. NEUROLOGIC: She is awake, alert, oriented, communicative. EXTREMITIES: Right leg is in the brace. LABORATORY DATA: WBC 6.6, hemoglobin 13, hematocrit 39, platelets 283. Chemistry: Sodium 145, potassium 3.8, chloride 107, CO2 of 29, BUN 18, creatinine 0.7, and blood sugar of 119. ASSESSMENT: 1. Status post fall. 2. Bimalleolar fracture, status post open reduction and internal fixation. 3. Severe generalized rheumatoid arthritis. 4. Hypertension. PLAN: We will continue patient on current analgesic regimen. She is on laxative, but she is getting nonweightbearing physical therapy. Possible discharge . Donte Meyer MD
[2017-11-16] MEDS: POLYETHYLENE GLYCOL 3350 17 GM/Dose PACKET PO SCH (10:15)
[2017-11-16] MEDS: Enoxaparin 40 mg Syringe SC SCH (10:15)
[2017-11-17] MEDS: Oxycodone/Acetaminophen 10/325 mg Tab PO SCH ×3 (01:31→10:24)
[2017-11-17] MEDS: Pantoprazole 40 mg EC Tab PO SCH (05:23)
[2017-11-17 06:40] VITALS: RESP 20
--- NOTE | 2017-11-17 09:11 | PN ---
DATE: 11/16/2017 SUBJECTIVE: Patient is 57-year-old, seen and examined, lying in bed, seems to be comfortable. No nausea or vomiting. No diarrhea. PHYSICAL EXAMINATION: VITAL SIGNS: Patient is afebrile, pulse 87, respirations 18, blood pressure 130/74. LUNGS: Bilateral good airflow. No rhonchi or crackles. HEART: S1 and S2 audible. ABDOMEN: Soft, nontender. No rebound. No guarding. NEUROLOGIC: Patient is awake, alert, oriented. EXTREMITIES: right leg is in the cast. Wiggles the toes, seems to be warm. ASSESSMENT: 1. Status post fall and right ankle bimalleolar fracture, status post open reduction and internal fixation. 2. Generalized rheumatoid arthritis. 3. Deconditioning and difficulty walking. PLAN: We will continue patient on current medications. She will be discharged in the a.m. Donte Meyer MD
[2017-11-17] MEDS: Enoxaparin 40 mg Syringe SC SCH (10:21)
[2017-11-17] MEDS: POLYETHYLENE GLYCOL 3350 17 GM/Dose PACKET PO SCH ×2 (10:22→10:27)
[2017-11-17 10:27] VITALS: BP 149/88; PULSE 84
[2017-11-17 12:55] VITALS: TEMP 98; O2SAT 95
--- NOTE | 2017-11-18 03:37 | DS ---
HOSPITAL COURSE: The patient is a 57-year-old who was admitted because of intractable right foot pain after she had bimalleolar fracture, open reduction and internal fixation done. She was operated and was sent home on the same day. When the regional block wore off, she was having intractable pain that did not improve with oral analgesic, so she called ambulance and she was brought to emergency room. PAST MEDICAL HISTORY: She has significant past medical history of rheumatoid arthritis. PAST SURGICAL HISTORY: She has multiple surgeries including cervical spine fusion, including lumbosacral fusion, bilateral shoulder surgeries, and bilateral nerve entrapment surgeries. The patient did well with IV analgesics and transferred to TCU for rehab, doing well, wants to go home. PHYSICAL EXAMINATION: VITAL SIGNS: She is afebrile, pulse 84, respirations 20, blood pressure 149/88. LUNGS: Bilateral good airflow. No rhonchi or crackles. HEART: S1 and S2 audible. ABDOMEN: Soft, nontender. No rebound. No guarding. NEUROLOGIC: The patient is awake, alert, oriented, communicative. LABORATORY EXAM: There is no new lab available today. ASSESSMENT: 1. Status post right bimalleolar fracture, open reduction and internal fixation. 2. Generalized rheumatoid arthritis. 3. Hypertension. 4. Gastritis. PLAN: The patient is being discharged home. She will resume her usual medications. We will give just 10 pills of Xanax to use as needed because she feels anxious at times, and she will follow with Dr. Lombardo next Donte Meyer MD
== END 2017-11-17 14:12 | disposition home or self-care (01) | DRG 561 ==
LOC: TRCU 12:32
PROVIDERS: ADMIT Internal Medicine; ATTEND Internal Medicine
PROC: F07Z9FZ Gait Training/Functional Ambulation Treatment using Assistive, Adaptive, Supportive or Protective Equipment (ICD-10-PCS; principal; 2017-11-15)
PROC: F07Z5ZZ Bed Mobility Treatment (ICD-10-PCS; 2017-11-15)
PROC: F07L6YZ Therapeutic Exercise Treatment of Musculoskeletal System - Lower Back / Lower Extremity using Other Equipment (ICD-10-PCS; 2017-11-15)
PROC: F08Z2ZZ Grooming/Personal Hygiene Treatment (ICD-10-PCS; 2017-11-17)
DX: S82.841D Displaced bimalleolar fracture of right lower leg, subsequent encounter for closed fracture with routine healing (principal); R26.2 Difficulty in walking, not elsewhere classified; I10 Essential (primary) hypertension; M06.9 Rheumatoid arthritis, unspecified; K29.70 Gastritis, unspecified, without bleeding; W19.XXXD Unspecified fall, subsequent encounter; Z98.1 Arthrodesis status; Z87.891 Personal history of nicotine dependence